=== PATIENT | female | born 1950 | race Two or more races ===

== ENCOUNTER 2018-04-14 16:40 | Inpatient (IN) | payer BC ==
--- OUTSIDE RECORDS SUMMARY | 2018-04-14 18:08 | XMS REPORT ---
:1950 External Reference #:[id number] Author Organization [employer] Address [address] [place] [address] [place] [address] Phone [phone] Care Team Providers Name Role Phone Alexandra Orozco MD Primary Care Physician Unavailable Payers Type Date Identification Numbers Payment Provider Subscriber Commercial Policy Number: [id number] [facility] Amber Perez Group Number: [id number] [address] PayID: [id number] [place] [address] Problems Date Description Provider Status Onset: 10/25/2014 Refractory migraine with aura Hailey Gallegos M.D. Active Onset: 04/25/2015 Carpal tunnel syndrome Hailey Gallegos M.D. Active Onset: 10/29/2015 Malignant tumor of ovary Hailey Gallegos M.D. Active Onset: 02/18/2016 Leukopenia Hailey Gallegos M.D. Active Social History Type Date Description Comments Occupation Retired Hand Dominance Right-handed ETOH Use Denies alcohol use Smoking Patient is a former smoker Recreational Drug Use Denies Drug Use Daily Caffeine Consumes on average 2 cups of regular coffee per day Exercise Type/Frequency Walks 3 times a week Allergies, Adverse Reactions, Alerts Date Description Reaction Status Severity Comments 11/25/2012 Keflex Rash active Medications Medication Date Status Form Strength Qnty SIG Indications Ordering Provider Sumatriptan 07/28 Active Tablets 100mg 12tab 1 tab by Arturo Overton s mouth at [place], onset of M.D. migraine. may repeat once in 2 hours. use no more than 2 tabs a day on no more than 2 days a week Nortriptyline HCL 07/28 Active Capsules 10mg 360ca Take 1 . ps Capsules El, By Mouth M.D. AT Bedtime as Directed Divalproex Sodium 03/24 Active Tablets ER 500mg 60tab take 2 Carley ER 24HR s tablets by Jason, aly at M.D. bedtime Sertraline HCL Active Tablets 100mg 1 tab po [place]-[facility] / daily Nohemi grey, [employer], RN Calcium Active Capsules 200-100-3 1 cap po Unknown 600/Magnesium /0000 3.3mg-mg- daily 300/Vitamin D Unit Cefaly Active once daily Unknown /0000 and as needed with headahces Prochlorperazine Active Tablets 10mg Take One Unknown Maleate Tablet By Mouth Every 6 Hours as Needed Chemo Therapy 10/28 Hx Hailey . El - M.D. 10/26 Phenergan 10/17 Hx Suppository 25mg 5unit 1 pr Q12h s prn nausea KEVYN Glez - 04/04 Fish Oil 10/19 Hx Capsules 1 cap po Hailey . daily El - M.D. 10/27 Zonisamide 04/06 Hx Capsules 50mg 90cap 2-3 caps Hailey s by mouth El, - every M.D. 10/05 night directed Amitriptyline HCL 07/28 Hx Tablets 10mg 90tab 1 -3 tabs Hailey . s as El, - directed M.D. 07/28 q Promethazine HCL 03/24 Hx Tablets 25mg 30tab 1 tab by Renee s mouth KEVYN Glez - every 8 10/27 hours needed Hydromorphone HCL 03/24 Hx Tablets 2mg 20tab 1 tab by Hailey Kristie s mouth El, - every 8 M.D. 10/27 hours needed [place] 07/13 Hx Tablets 5-325mg 40tab 1 po q4h s prn Blue gatica M.D. 07/28 Sumatriptan 00/ Hx Tablets 100mg 12tab 06/08 - 1 Hailey Claire Succinate /0000 s tab by Fransico Gallegos M.D. 07/28 Vital Signs Date Vital Result Comment 04/05/2018 Height 61 inches 5'1" Weight 116.00 lb Heart Rate 70 /min BP Systolic Sitting 106 mmHg BP Diastolic Sitting 60 mmHg Respiratory Rate 16 /min BMI (Body Mass Index) 21.9 kg/m2 10/30/2016 Height 61 inches 5'1" Weight 114.25 lb Heart Rate 60 /min BP Systolic Sitting 118 mmHg BP Diastolic Sitting 68 mmHg Respiratory Rate 12 /min BMI (Body Mass Index) 21.6 kg/m2 02/18/2016 Height 61 inches 5'1" Weight 110.00 lb Heart Rate 78 /min BP Systolic Sitting 104 mmHg BP Diastolic Sitting 62 mmHg Respiratory Rate 14 /min O2 % BldC Oximetry 95 % BMI (Body Mass Index) 20.8 kg/m2 10/29/2015 Height 61 inches 5'1" Weight 114.00 lb Heart Rate 72 /min BP Systolic Sitting 120 mmHg BP Diastolic Sitting 68 mmHg Respiratory Rate 14 /min BMI (Body Mass Index) 21.5 kg/m2 04/25/2015 Height 61 inches 5'1" Weight 125.00 lb Heart Rate 68 /min BP Systolic Sitting 124 mmHg BP Diastolic Sitting 70 mmHg Respiratory Rate 16 /min BMI (Body Mass Index) 23.6 kg/m2 10/25/2014 Height 61 inches 5'1" Heart Rate 60 /min BP Systolic Sitting 106 mmHg BP Diastolic Sitting 66 mmHg Respiratory Rate 16 /min 04/24/2014 Height 61 inches 5'1" Weight 125.00 lb Heart Rate 84 /min BP Systolic Sitting 120 mmHg BP Diastolic Sitting 72 mmHg Respiratory Rate 16 /min BMI (Body Mass Index) 23.6 kg/m2 10/19/2013 Height 61 inches 5'1" Weight 121.00 lb Heart Rate 76 /min BP Systolic Sitting 110 mmHg BP Diastolic Sitting 64 mmHg Respiratory Rate 16 /min BMI (Body Mass Index) 22.9 kg/m2 04/06/2013 Heart Rate 75 /min BP Systolic Sitting 108 mmHg BP Diastolic Sitting 66 mmHg Respiratory Rate 18 /min 11/25/2012 Height 61 inches 5'1" Weight 120.00 lb Heart Rate 88 /min BP Systolic 116 mmHg BP Diastolic 78 mmHg Respiratory Rate 12 /min BMI (Body Mass Index) 22.7 kg/m2 06/05/2011 Height 61 inches 5'1" Weight 113.00 lb Heart Rate 59 /min BP Systolic 89 mmHg BP Diastolic 52 mmHg BMI (Body Mass Index) 21.3 kg/m2 Results Test Date Test Result H/L Range Note Comp Metabolic Panel 01/27/2018 Sodium 136 mmol/L 135-145 Potassium 4.4 mmol/L 3.5-5.0 Chloride 102 mmol/L 101-111 Co2 Carbon Dioxide 29 mmol/L 22-32 Anion Gap 5 mmol/L 2-11 Glucose 86 mg/dL 70-100 Blood Urea Nitrogen 5 mg/dL Low 6-24 Creatinine 0.61 mg/dL 0.51-0.95 BUN/Creatinine Ratio 8.2 8-20 Calcium 8.7 mg/dL 8.6-10.3 Total Protein 5.8 g/dL Low 6.4-8.9 Albumin 3.5 g/dL 3.2-5.2 Globulin 2.3 g/dL 2-4 Albumin/Globulin Ratio 1.5 1-3 Total Bilirubin 0.20 mg/dL 0.2-1.0 Alkaline Phosphatase 64 U/L 34-104 Alt 9 U/L 7-52 Ast 15 U/L 13-39 Egfr Non- 98.1 >60 Egfr 118.7 >60 1 CBC Auto Diff 01/27/2018 White Blood Count 5.4 10^3/uL 3.5-10.8 Red Blood Count 3.72 10^6/uL Low 4.00-5.40 Hemoglobin 12.3 g/dL 12.0-16.0 Hematocrit 36 % 35-47 Mean Corpuscular Volume 98 fL High 80-97 Mean Corpuscular Hemoglobin 33 pg High 27-31 Mean Corpuscular HGB Conc 34 g/dL 31-36 Red Cell Distribution Width 13 % 10.5-15 Platelet Count 353 10^3/uL 150-450 Mean Platelet Volume 7.8 um3 7.4-10.4 Abs Neutrophils 3.4 10^3/uL 1.5-7.7 Abs Lymphocytes 1.4 10^3/uL 1.0-4.8 Abs Monocytes 0.5 10^3/uL 0-0.8 Abs Eosinophils 0.1 10^3/uL 0-0.6 Abs Basophils 0.1 10^3/uL 0-0.2 Abs Nucleated RBC 0 10^3/uL Granulocyte % 62.6 % 38-83 Lymphocyte % 25.4 % 25-47 Monocyte % 9.3 % High 0-7 Eosinophil % 1.7 % 0-6 Basophil % 1.0 % 0-2 Nucleated Red Blood Cells % 0.1 CBC Auto Diff 11/25/2017 White Blood Count 5.3 10^3/uL 3.5-10.8 Red Blood Count 4.09 10^6/uL 4.00-5.40 Hemoglobin 13.7 g/dL 12.0-16.0 Hematocrit 40 % 35-47 Mean Corpuscular Volume 97 fL 80-97 Mean Corpuscular Hemoglobin 34 pg High 27-31 Mean Corpuscular HGB Conc 35 g/dL 31-36 Red Cell Distribution Width 13 % 10.5-15 Platelet Count 202 10^3/uL 150-450 Mean Platelet Volume 8.5 um3 7.4-10.4 Abs Neutrophils 3.2 10^3/uL 1.5-7.7 Abs Lymphocytes 1.4 10^3/uL 1.0-4.8 Abs Monocytes 0.4 10^3/uL 0-0.8 Abs Eosinophils 0.2 10^3/uL 0-0.6 Abs Basophils 0.1 10^3/uL 0-0.2 Abs Nucleated RBC 0 10^3/uL Granulocyte % 60.4 % 38-83 Lymphocyte % 26.3 % 25-47 Monocyte % 8.4 % High 0-7 Eosinophil % 3.9 % 0-6 Basophil % 1.0 % 0-2 Nucleated Red Blood Cells % 0 Comp Metabolic Panel 11/25/2017 Sodium 134 mmol/L Low 135-145 Potassium 4.1 mmol/L 3.5-5.0 Chloride 99 mmol/L Low 101-111 Co2 Carbon Dioxide 28 mmol/L 22-32 Anion Gap 7 mmol/L 2-11 Glucose 97 mg/dL 70-100 Blood Urea Nitrogen 13 mg/dL 6-24 Creatinine 0.66 mg/dL 0.51-0.95 BUN/Creatinine Ratio 19.7 8-20 Calcium 9.4 mg/dL 8.6-10.3 Total Protein 6.6 g/dL 6.4-8.9 Albumin 3.8 g/dL 3.2-5.2 Globulin 2.8 g/dL 2-4 Albumin/Globulin Ratio 1.4 1-3 Total Bilirubin 0.30 mg/dL 0.2-1.0 Alkaline Phosphatase 68 U/L 34-104 Alt 11 U/L 7-52 Ast 22 U/L 13-39 Egfr Non- 89.6 >60 Egfr 108.4 >60 2 CBC Auto Diff 02/17/2016 White Blood Count 2.7 10^3/uL Low 3.5-10.8 3 Red Blood Count 2.93 10^6/uL Low 4.0-5.4 Hemoglobin 10.3 g/dL Low 12.0-16.0 Hematocrit 30 % Low 35-47 Mean Corpuscular Volume 103 fL High 80-97 Mean Corpuscular Hemoglobin 35 pg High 27-31 Mean Corpuscular HGB Conc 34 g/dL 31-36 Red Cell Distribution Width 21 % High 10.5-15 Platelet Count 169 10^3/uL 150-450 Mean Platelet Volume 8 um3 7.4-10.4 Abs Neutrophils 1.1 10^3/uL Low 1.5-7.7 Abs Lymphocytes 1.0 10^3/uL 1.0-4.8 Abs Monocytes 0.5 10^3/uL 0-0.8 Abs Eosinophils 0 10^3/uL 0-0.6 Abs Basophils 0 10^3/uL 0-0.2 Abs Nucleated RBC 0 10^3/uL Granulocyte % 42.4 % 38-83 Lymphocyte % 38.1 % 25-47 Monocyte % 17.9 % High 1-9 Eosinophil % 0.3 % 0-6 Basophil % 1.3 % 0-2 Nucleated Red Blood Cells % 0.1 Comp Metabolic Panel 02/17/2016 Sodium 134 mmol/L 133-145 Potassium 4.1 mmol/L 3.5-5.0 Chloride 101 mmol/L 101-111 Co2 Carbon Dioxide 27 mmol/L 22-32 Anion Gap 6 mmol/L 2-11 Glucose 82 mg/dL 70-100 Blood Urea Nitrogen 10 mg/dL 6-24 Creatinine 0.59 mg/dL 0.51-0.95 BUN/Creatinine Ratio 16.9 8-20 Calcium 8.7 mg/dL 8.6-10.3 Total Protein 6.0 g/dL Low 6.4-8.9 Albumin 3.7 g/dL 3.2-5.2 Globulin 2.3 g/dL 2-4 Albumin/Globulin Ratio 1.6 1-3 Total Bilirubin 0.20 mg/dL 0.2-1.0 Alkaline Phosphatase 48 U/L 34-104 Alt 11 U/L 7-52 Ast 20 U/L 13-39 Egfr Non- 102.6 >60 Egfr 132.0 >60 4 1 Because ethnic data is not always readily available, this report includes an eGFR for both -Americans and non- Americans. The National Kidney Disease Education Program (NKDEP) does not endorse the use of the MDRD equation for patients that are not between the ages of 18 and 70, are , have extremes of body size, muscle mass, or nutritional status, or are non- or non-. According to the National Kidney Foundation, irrespective of diagnosis, the stage of the disease is based on the level of kidney function: Stage Description GFR(mL/min/1.73 m(2)) 1 Kidney damage with normal or decreased GFR 90 2 Kidney damage with mild decrease in GFR 60-89 3 Moderate decrease in GFR 30-59 4 Severe decrease in GFR 15-29 5 Kidney failure <15 (or dialysis) 2 Because ethnic data is not always readily available, this report includes an eGFR for both -Americans and non- Americans. The National Kidney Disease Education Program (NKDEP) does not endorse the use of the MDRD equation for patients that are not between the ages of 18 and 70, are , have extremes of body size, muscle mass, or nutritional status, or are non- or non-. According to the National Kidney Foundation, irrespective of diagnosis, the stage of the disease is based on the level of kidney function: Stage Description GFR(mL/min/1.73 m(2)) 1 Kidney damage with normal or decreased GFR 90 2 Kidney damage with mild decrease in GFR 60-89 3 Moderate decrease in GFR 30-59 4 Severe decrease in GFR 15-29 5 Kidney failure <15 (or dialysis) 3 Consistent with previous results on 02/05/16. 4 Because ethnic data is not always readily available, this report includes an eGFR for both -Americans and non- Americans. The National Kidney Disease Education Program (NKDEP) does not endorse the use of the MDRD equation for patients that are not between the ages of 18 and 70, are , have extremes of body size, muscle mass, or nutritional status, or are non- or non-. According to the National Kidney Foundation, irrespective of diagnosis, the stage of the disease is based on the level of kidney function: Stage Description GFR(mL/min/1.73 m(2)) 1 Kidney damage with normal or decreased GFR 90 2 Kidney damage with mild decrease in GFR 60-89 3 Moderate decrease in GFR 30-59 4 Severe decrease in GFR 15-29 5 Kidney failure <15 (or dialysis) Procedures Date CPT Code Description Status 2011 49591 Carpal Tunnel Release Completed 2011 60205 Carpal Tunnel Release Completed Encounters Type Date Location Provider CPT E/M Dx Office Visit 01/12/2018 2:30p [facility] [place] [address] L82.1 D23.72 D23.71 Office Visit 10/30/2016 3:30p Rickey/Guero Gallegos, 66120 G43.019 [facility] M.D. Office Visit 02/18/2016 11:15a [facility] Hailey Gallegos 11625 G43.019 Services Of [facility] M.D. D72.819 Z79.899 Office Visit 10/29/2015 9:45a [facility] Hailey Gallegos 36594 G43.019 Services Of [place] Washer M.D. G44.41 Office Visit 04/25/2015 9:45a [facility] Hailey Gallegos 47293 G43.719 Services Of [place] Washer M.D. G56.01 R20.2 Office Visit 10/25/2014 9:45a [facility] Hailey Gallegos 43022 346.90 [facility] M.D. Office Visit 04/24/2014 9:15a [facility] Hailey Gallegos 84702 346.11 [facility] [place] M.D. Office Visit 10/19/2013 8:30a [facility] Hailey Gallegos 55173 346.11 [facility] [place] M.D. Office Visit 04/06/2013 8:30a [facility] Hailey Alethea Barbamelissa, 74473 346.90 [facility] M.D. Office Visit 11/25/2012 8:30a [facility]iley SharitaKristie Fredamelissa, 20863 346.90 [facility] M.D. Office Visit 07/28/2012 8:30a [facility] Hailey SharitaKristie Fredamelissa, 77405 346.90 [facility] [place] M.D. Office Visit 03/24/2012 2:15p [facility] Hailey SharitaKristie Fredamelissa, 75312 346.90 Services Of [place] Washer M.D. 781.0 Office Visit 06/05/2011 9:15a [facility] Cristal Cohen, 40994 354.0 Of Magdy Ness Plan of Care Future Appointment(s):06/15/2018 4:00 pm - Arturo Villa M.D. at [facility]04/05/2018 - Arturo Villa M.D.G43.019 Migraine w/ o aura, intractable, without status migrainosusReferral:Susana Castillo MD, Pain Management-anesthesiFollow up:get last blood tests from Dr. Sanford 1-2 months after VmmxgF41.39 Carcinoma in situ of other female genital organsNew Xrays:MRI Brain W/O
[2018-04-14] MEDS: NS 0.9% 1000 ML* 1,000 ML IV SCH (18:41)
[2018-04-14] MEDS: Morphine VIAL* 4 MG/ML VIAL (1 ml vial) IV PRN (21:15)
[2018-04-14] MEDS: Divalproex ER TAB(*) 500 MG PO SCH (21:19)
[2018-04-14] MEDS: PROCHLORPERAZINE INJ 5 MG/ML 2 ML VIAL IV PRN (21:49)
[2018-04-15 00:58] LABS: Mean Platelet Volume 7.2 fL (7.4-10.4); Platelet Count 50 10^3/ul (150-450)
[2018-04-15] MEDS: Levothyroxine TAB* 50 MCG TAB PO SCH (05:11)
[2018-04-15] MEDS: NS 0.9% 1000 ML* 1,000 ML IV SCH ×2 (05:11→14:22)
[2018-04-15 05:38] LABS: Hematocrit 28 % (35-47); Hemoglobin 9.6 g/dl (12.0-16.0); Mean Corpuscular HGB Conc 34 g/dl (31-36); Mean Corpuscular Hemoglobin 33 pg (27-31); Mean Corpuscular Volume 96 fL (80-97); Mean Platelet Volume 7.7 fL (7.4-10.4); Platelet Count 48 10^3/ul (150-450); Red Blood Count 2.91 10^6/ul (4.00-5.40); Red Cell Distribution Width 13 % (10.5-15); White Blood Count 1.2 10^3/ul (3.5-10.8)
[2018-04-15 05:52] LABS: EGFR Non-African American 129.4 (>60)
[2018-04-15 06:04] LABS: ABS Basophils 0 10^3/ul (0-0.2); ABS Eosinophils 0 10^3/ul (0-0.6); ABS Lymphocytes 0.8 10^3/ul (1.0-4.8); ABS Monocytes 0.1 10^3/ul (0-0.8); ABS Neutrophils 0.3 10^3/ul (1.5-7.7); ABS Nucleated RBC 0 10^3/ul; Eosinophil % 0.2 % (0-6); Lymphocyte % 71.2 % (25-47); Nucleated Red Blood Cells % 0
[2018-04-15] MEDS: Nortriptyline CAP* 10 MG PO SCH ×2 (08:44→10:51)
[2018-04-15] MEDS ORDERED: SUMAtriptan TAB* 50 MG PO ONE (10:18)
[2018-04-15] MEDS: Divalproex ER TAB(*) 500 MG PO SCH ×2 (17:23→20:17)
[2018-04-15] MEDS: PROCHLORPERAZINE INJ 5 MG/ML 2 ML VIAL IV PRN (17:29)
[2018-04-15] MEDS ORDERED: SUMAtriptan TAB* 100 MG PO PRN (18:00)
[2018-04-15] MEDS: Morphine VIAL* 4 MG/ML VIAL (1 ml vial) IV PRN (20:21)
[2018-04-16] MEDS: NS 0.9% 1000 ML* 1,000 ML IV SCH ×2 (00:18→17:18)
[2018-04-16] MEDS: Levothyroxine TAB* 50 MCG TAB PO SCH (06:02)
[2018-04-16 06:22] LABS: ABS Basophils 0 10^3/ul (0-0.2); ABS Eosinophils 0 10^3/ul (0-0.6); ABS Lymphocytes 0.9 10^3/ul (1.0-4.8); ABS Monocytes 0.1 10^3/ul (0-0.8); ABS Neutrophils 0.9 10^3/ul (1.5-7.7); ABS Nucleated RBC 0 10^3/ul; Eosinophil % 0.5 % (0-6); Hematocrit 27 % (35-47); Hemoglobin 9.3 g/dl (12.0-16.0); Lymphocyte % 45.9 % (25-47); Mean Corpuscular HGB Conc 34 g/dl (31-36); Mean Corpuscular Hemoglobin 33 pg (27-31); Mean Corpuscular Volume 96 fL (80-97); Mean Platelet Volume 7.7 fL (7.4-10.4); Nucleated Red Blood Cells % 0.1; Platelet Count 35 10^3/ul (150-450); Red Blood Count 2.83 10^6/ul (4.00-5.40); Red Cell Distribution Width 12 % (10.5-15); White Blood Count 1.9 10^3/ul (3.5-10.8)
[2018-04-16] MEDS: Nortriptyline CAP* 10 MG PO SCH (08:17)
[2018-04-16] MEDS ORDERED: Saline NASAL SPRAY 0.65%* BTL BOTH NARES PRN (09:34)
[2018-04-16] MEDS: Morphine VIAL* 4 MG/ML VIAL (1 ml vial) IV PRN (10:33)
[2018-04-16] MEDS: Acetaminophen TAB* 325 MG PO PRN ×2 (16:20→20:25)
[2018-04-16] MEDS: Divalproex ER TAB(*) 500 MG PO SCH (20:10)
[2018-04-17] MEDS: Levothyroxine TAB* 50 MCG TAB PO SCH (05:23)
[2018-04-17 06:05] LABS: EGFR Non-African American 139.4 (>60)
[2018-04-17] MEDS: Nortriptyline CAP* 10 MG PO SCH (08:53)
[2018-04-17] MEDS: NS 0.9% 1000 ML* 1,000 ML IV SCH (10:35)
[2018-04-17 11:14] LABS: ABS Basophils 0 10^3/ul (0-0.2); ABS Eosinophils 0 10^3/ul (0-0.6); ABS Lymphocytes 0.7 10^3/ul (1.0-4.8); ABS Monocytes 0.2 10^3/ul (0-0.8); ABS Neutrophils 0.8 10^3/ul (1.5-7.7); ABS Nucleated RBC 0 10^3/ul; Hematocrit 30 % (35-47); Hemoglobin 10.3 g/dl (12.0-16.0); Lymphocyte % 40.9 % (25-47); Mean Corpuscular HGB Conc 34 g/dl (31-36); Mean Corpuscular Hemoglobin 33 pg (27-31); Mean Corpuscular Volume 96 fL (80-97); Mean Platelet Volume 8.3 fL (7.4-10.4); Nucleated Red Blood Cells % 0.3; Platelet Count 35 10^3/ul (150-450); Red Blood Count 3.14 10^6/ul (4.00-5.40); Red Cell Distribution Width 12 % (10.5-15); White Blood Count 1.7 10^3/ul (3.5-10.8)
[2018-04-17] MEDS: Acetaminophen TAB* 325 MG PO PRN ×2 (14:54→21:11)
[2018-04-17] MEDS: Divalproex ER TAB(*) 500 MG PO SCH (21:13)
[2018-04-18] MEDS: ALPRAZolam TAB* 0.25 MG PO PRN ×2 (02:27→11:49)
[2018-04-18] MEDS: Levothyroxine TAB* 50 MCG TAB PO SCH (06:24)
[2018-04-18 07:40] LABS: ABS Basophils 0 10^3/ul (0-0.2); ABS Eosinophils 0 10^3/ul (0-0.6); ABS Lymphocytes 0.7 10^3/ul (1.0-4.8); ABS Monocytes 0.2 10^3/ul (0-0.8); ABS Neutrophils 0.9 10^3/ul (1.5-7.7); ABS Nucleated RBC 0 10^3/ul; Hematocrit 28 % (35-47); Hemoglobin 9.5 g/dl (12.0-16.0); Lymphocyte % 37.1 % (25-47); Mean Corpuscular HGB Conc 34 g/dl (31-36); Mean Corpuscular Hemoglobin 33 pg (27-31); Mean Corpuscular Volume 95 fL (80-97); Mean Platelet Volume 8.5 fL (7.4-10.4); Nucleated Red Blood Cells % 0.9; Platelet Count 44 10^3/ul (150-450); Red Blood Count 2.93 10^6/ul (4.00-5.40); Red Cell Distribution Width 12 % (10.5-15); White Blood Count 1.8 10^3/ul (3.5-10.8)
[2018-04-18 07:48] LABS: EGFR Non-African American 164.4 (>60)
[2018-04-18] MEDS: Nortriptyline CAP* 10 MG PO SCH (08:51)
[2018-04-18] MEDS ORDERED: Magnesium Sulfate 2 GM IV* 2 GM/50 ML BAG IVPB ONE (10:23)
--- NOTE | 2018-04-18 10:23 | PN ---
Progress Note - Progress Note Date of Service: 04/18/18 SOAP: Subjective: [Feels poorly. Small BM yesterday am, none since, but still passing gas. No nausea. Tolerating clear liquids, but no real appetite. She is very uncomfortable, feels bloated and can't find a comfortable position.] Objective: [ Laboratory Results - last 24 hr 04/17/18 04/18/18 04/18/18 10:41 06:37 06:37 WBC 1.7 L 1.8 L RBC 3.14 L 2.93 L Hgb 10.3 L 9.5 L Hct 30 L 28 L MCV 96 95 MCH 33 H 33 H MCHC 34 34 RDW 12 12 Plt Count 35 L 44 L MPV 8.3 8.5 Neut % (Auto) 47.5 48.5 Lymph % (Auto) 40.9 37.1 [place] % (Auto) 9.2 H 12.2 H Eos % (Auto) 2.0 2.0 Baso % (Auto) 0.4 0.2 Absolute Neuts (auto) 0.8 L 0.9 L Absolute Lymphs (auto) 0.7 L 0.7 L Absolute Monos (auto) 0.2 0.2 Absolute Eos (auto) 0 0 Absolute Basos (auto) 0 0 Absolute Nucleated RBC 0 0 Nucleated RBC % 0.3 0.9 Sodium 136 Potassium 3.3 L Chloride 104 Carbon Dioxide 26 Anion Gap 6 BUN 3 L Creatinine 0.39 L Est GFR ( Amer) 199.0 Est GFR (Non-Af Amer) 164.4 BUN/Creatinine Ratio 7.7 L Glucose 90 Calcium 7.9 L Total Bilirubin 0.20 AST 47 H ALT 65 H Alkaline Phosphatase 76 Total Protein 4.9 L Albumin 2.8 L Globulin 2.1 Albumin/Globulin Ratio 1.3 Acetaminophen (Tylenol Tab*) 650 mg PO Q4H PRN PRN Reason: PAIN Last Admin: 04/17/18 21:11 Dose: 650 mg Alprazolam (Xanax Tab*) 0.25 mg PO TID PRN PRN Reason: ANXIETY Last Admin: 04/18/18 02:27 Dose: 0.25 mg Divalproex Sodium (Depakote Er Tab(*)) 1,500 mg PO BEDTIME WILFRIDO Last Admin: 04/17/18 21:13 Dose: 1,500 mg Heparin Sodium (Porcine) (Heparin Flush Port (Ivad)) 5 ml FLUSH DAILY [facility]; Protocol Last Admin: 04/18/18 08:16 Dose: Not Given Sodium Chloride (Ns 0.9% 1000 Ml*) 1,000 mls @ 60 mls/hr IV PER RATE [facility] Last Admin: 04/17/18 10:35 Dose: 60 mls/hr Levothyroxine Sodium (Synthroid Tab*) 50 mcg PO DAILY@0600 [facility] Last Admin: 04/18/18 06:24 Dose: 50 mcg Morphine Sulfate (Morphine Vial*) 2 mg IV Q2H PRN PRN Reason: PAIN Last Admin: 04/16/18 10:33 Dose: 2 mg Nortriptyline HCl (Pamelor Cap*) 10 mg PO DAILY [facility] Last Admin: 04/18/18 08:51 Dose: 10 mg Prochlorperazine Edisylate (Compazine Inj*) 10 mg IV Q6H PRN PRN Reason: NAUSEA/VOMITING Last Admin: 04/15/18 17:29 Dose: 10 mg Sertraline HCl (Zoloft*) 150 mg PO DAILY [facility] Sodium Chloride (Sodium Chloride 0.65% Nasal [place]*) 1 spray BOTH NARES Q4H PRN PRN Reason: dryness Vital Signs: Temp Pulse Resp BP Pulse Ox 96.7 F 68 16 127/65 97 04/17/18 22:37 04/17/18 22:37 04/18/18 04:30 04/17/18 22:37 04/17/18 22:37 Exam: Gen: Ill appearing 67 yo female in NAD but looks uncomfortable HEENT: MMM, no thrush CV: RRR, no m/r/g Resp: CTA, no w/c/r Abd: distended, firm, mild TTP, BS active in all quadrants Ext: no edema] Assessment: [67 yo female with recurrent ovarian CA admitted with a SBO and pancytopenia following her first cycle of chemotherapy.] Plan: [1. SBO - no change on KUB but symptomatically improved - paracentesis today under US guidance - would like US guidance due to dilated loops of bowel - cont clear liquids as tolerated - repeat KUB tomorrow 2. Pancytopenia - secondary to chemotherapy - slowly improving 3. Recurrent ovarian CA with ascites - cycle 1 carbo/gem/avastin 03/31/18 - therapeutic paracentesis today 4. DVT prophylaxis - no chemical prophylaxis as platelets still <50k ]
[2018-04-18] MEDS: Sertraline* 100 MG TAB PO SCH (11:37)
[2018-04-18] MEDS: PROCHLORPERAZINE INJ 5 MG/ML 2 ML VIAL IV PRN ×2 (12:01→19:36)
[2018-04-18] MEDS: KCL 10 MEQ/50 ML IVPREMIX* 10 MEQ/50 ML BAG IV SCH ×3 (13:09→17:53)
[2018-04-18] MEDS ORDERED: KCL 10 MEQ/50 ML IVPREMIX* 10 MEQ/50 ML BAG ONE (17:49)
[2018-04-18] MEDS: Acetaminophen TAB* 325 MG PO PRN (17:56)
[2018-04-18] MEDS: Morphine VIAL* 4 MG/ML VIAL (1 ml vial) IV PRN (19:35)
[2018-04-18] MEDS: Divalproex ER TAB(*) 500 MG PO SCH (19:35)
[2018-04-19] MEDS: NS 0.9% 1000 ML* 1,000 ML IV SCH (02:45)
[2018-04-19] MEDS: Levothyroxine TAB* 50 MCG TAB PO SCH (05:14)
[2018-04-19] MEDS: Acetaminophen TAB* 325 MG PO PRN ×2 (05:26→14:53)
[2018-04-19 05:53] LABS: ABS Basophils 0 10^3/ul (0-0.2); ABS Eosinophils 0 10^3/ul (0-0.6); ABS Lymphocytes 0.6 10^3/ul (1.0-4.8); ABS Monocytes 0.3 10^3/ul (0-0.8); ABS Neutrophils 0.9 10^3/ul (1.5-7.7); ABS Nucleated RBC 0 10^3/ul; Eosinophil % 1.3 % (0-6); Hematocrit 28 % (35-47); Hemoglobin 9.6 g/dl (12.0-16.0); Lymphocyte % 33.7 % (25-47); Mean Corpuscular HGB Conc 35 g/dl (31-36); Mean Corpuscular Hemoglobin 33 pg (27-31); Mean Corpuscular Volume 96 fL (80-97); Mean Platelet Volume 8.3 fL (7.4-10.4); Nucleated Red Blood Cells % 0.7; Platelet Count 93 10^3/ul (150-450); Red Cell Distribution Width 12 % (10.5-15); White Blood Count 1.9 10^3/ul (3.5-10.8)
[2018-04-19 06:02] LABS: EGFR Non-African American 155.2 (>60)
[2018-04-19] MEDS: Sertraline* 100 MG TAB PO SCH (09:08)
[2018-04-19] MEDS: Nortriptyline CAP* 10 MG PO SCH (09:08)
--- NOTE | 2018-04-19 11:45 | PN ---
Progress Note - Progress Note Date of Service: 04/19/18 SOAP: Subjective: []Feels a lot better following paracentesis yesterday, though still full. Passing gas and last BM 04/17. Nausea last night following taking a handful of pills. No emesis. Stomach hurts to left aspect machelle. when she moves, such as rolling over in bed. Tolerating clears and hopeful to go home. Medications: Acetaminophen (Tylenol Tab*) 650 mg PO Q4H PRN PRN Reason: PAIN Last Admin: 04/19/18 05:26 Dose: 650 mg Alprazolam (Xanax Tab*) 0.25 mg PO TID PRN PRN Reason: ANXIETY Last Admin: 04/18/18 11:49 Dose: 0.25 mg Divalproex Sodium (Depakote Er Tab(*)) 1,500 mg PO BEDTIME [facility] Last Admin: 04/18/18 19:35 Dose: 1,500 mg Heparin Sodium (Porcine) (Heparin Flush Port (Ivad)) 5 ml FLUSH DAILY [facility]; Protocol Last Admin: 04/19/18 09:07 Dose: Not Given Levothyroxine Sodium (Synthroid Tab*) 50 mcg PO DAILY@0600 [facility] Last Admin: 04/19/18 05:14 Dose: 50 mcg Morphine Sulfate (Morphine Vial*) 2 mg IV Q2H PRN PRN Reason: PAIN Last Admin: 04/18/18 19:35 Dose: 2 mg Nortriptyline HCl (Pamelor Cap*) 10 mg PO DAILY [facility] Last Admin: 04/19/18 09:08 Dose: 10 mg Prochlorperazine Edisylate (Compazine Inj*) 10 mg IV Q6H PRN PRN Reason: NAUSEA/VOMITING Last Admin: 04/18/18 19:36 Dose: 10 mg Sertraline HCl (Zoloft*) 150 mg PO DAILY [facility] Last Admin: 04/19/18 09:08 Dose: 150 mg Sodium Chloride (Sodium Chloride 0.65% Nasal [place]*) 1 spray BOTH NARES Q4H PRN PRN Reason: dryness Objective: [] Vital Signs Temp Pulse Resp BP Pulse Ox 97.4 F 71 16 120/48 96 04/19/18 11:23 04/19/18 11:23 04/19/18 11:23 04/19/18 11:23 04/19/18 11:23 A&Ox3, EOMI, neuro grossly non-focal HRR, S1S2 LS clear bilat. with even and non-labored resp. +BS, hypoactive, with round soft abd. slightly distended, tender to Left quads No edema noted Laboratory Results - last 24 hr 04/19/18 04/19/18 05:22 05:22 WBC 1.9 L RBC 2.90 L Hgb 9.6 L Hct 28 L MCV 96 MCH 33 H MCHC 35 RDW 12 Plt Count 93 L D MPV 8.3 Neut % (Auto) 47.2 Lymph % (Auto) 33.7 [place] % (Auto) 17.6 H Eos % (Auto) 1.3 Baso % (Auto) 0.2 Absolute Neuts (auto) 0.9 L Absolute Lymphs (auto) 0.6 L Absolute Monos (auto) 0.3 Absolute Eos (auto) 0 Absolute Basos (auto) 0 Absolute Nucleated RBC 0 Nucleated RBC % 0.7 Sodium 135 Potassium 3.5 Chloride 105 Carbon Dioxide 25 Anion Gap 5 BUN 3 L Creatinine 0.41 L Est GFR ( Amer) 187.8 Est GFR (Non-Af Amer) 155.2 BUN/Creatinine Ratio 7.3 L Glucose 94 Calcium 7.6 L Magnesium 2.1 Total Bilirubin 0.20 AST 32 ALT 49 Alkaline Phosphatase 73 Total Protein 4.7 L Albumin 2.6 L Globulin 2.1 Albumin/Globulin Ratio 1.2 Assessment: []67 yo female with recurrent ovarian CA admitted with SBO and pancytopenia following her first cycle of chemotherapy. While her counts are slowly recovering her SBO has been persistent. Plan: []1. SBO: persistent on x-ray with cont.'d abd. pain though mild improvement since admission - start TPN standard base A, check daily labs - OK to cont. PO clears as long as not throwing up - enc.'d ambulation 2. Ovarian Cancer: s/p C1 Carbo/[place]/Avastin (day 1 03/31, day 8 04/07) - day 20, plan delay of C2 x1 week and will plan 20% dose reduction - will likely hold Avastin d/t recurrent obstructions 3. Pancytopenia: chemotherapy induced, recovering - cont. daily labs
[2018-04-19 15:11] LABS: Hematocrit 28 % (35-47); Hemoglobin 9.6 g/dl (12.0-16.0); Mean Corpuscular HGB Conc 34 g/dl (31-36); Mean Corpuscular Hemoglobin 33 pg (27-31); Mean Corpuscular Volume 95 fL (80-97); Mean Platelet Volume 8.2 fL (7.4-10.4); Platelet Count 139 10^3/ul (150-450); Red Blood Count 2.92 10^6/ul (4.00-5.40); Red Cell Distribution Width 13 % (10.5-15)
[2018-04-19 15:49] LABS: EGFR Non-African American 155.2 (>60)
[2018-04-19 16:08] LABS: ABS Basophils 0 10^3/ul (0-0.2); ABS Eosinophils 0 10^3/ul (0-0.6); ABS Lymphocytes 0.8 10^3/ul (1.0-4.8); ABS Monocytes 0.3 10^3/ul (0-0.8); ABS Neutrophils 0.9 10^3/ul (1.5-7.7); ABS Nucleated RBC 0 10^3/ul; Eosinophil % 1.4 % (0-6); Lymphocyte % 39.2 % (25-47)
[2018-04-19] MEDS ORDERED: TPN* 24 HR with Dextrose 50% Water* 500 ML, Amino Acid Infusion 10%* 850 ML, Sterile Wa... CENTR SCH ×12 (17:00)
[2018-04-19] MEDS: Divalproex ER TAB(*) 500 MG PO SCH (20:19)
[2018-04-19] MEDS: Morphine VIAL* 4 MG/ML VIAL (1 ml vial) IV PRN (20:27)
[2018-04-20] MEDS: Morphine VIAL* 4 MG/ML VIAL (1 ml vial) IV PRN ×3 (03:25→21:54)
[2018-04-20] MEDS: Levothyroxine TAB* 50 MCG TAB PO SCH (06:14)
[2018-04-20 06:44] LABS: Hematocrit 29 % (35-47); Hemoglobin 9.9 g/dl (12.0-16.0); Mean Corpuscular HGB Conc 35 g/dl (31-36); Mean Corpuscular Hemoglobin 33 pg (27-31); Mean Corpuscular Volume 96 fL (80-97); Mean Platelet Volume 8.1 fL (7.4-10.4); Platelet Count 216 10^3/ul (150-450); Red Blood Count 2.98 10^6/ul (4.00-5.40); Red Cell Distribution Width 13 % (10.5-15); White Blood Count 2.3 10^3/ul (3.5-10.8)
[2018-04-20 07:11] LABS: EGFR Non-African American 146.9 (>60)
[2018-04-20 07:47] LABS: ABS Basophils 0 10^3/ul (0-0.2); ABS Eosinophils 0 10^3/ul (0-0.6); ABS Lymphocytes 0.8 10^3/ul (1.0-4.8); ABS Monocytes 0.4 10^3/ul (0-0.8); ABS Neutrophils 1.2 10^3/ul (1.5-7.7); ABS Nucleated RBC 0.1 10^3/ul; Eosinophil % 1.8 % (0-6); Lymphocyte % 32.6 % (25-47); Nucleated Red Blood Cells % 4.2
[2018-04-20] MEDS: Sertraline* 100 MG TAB PO SCH (09:15)
[2018-04-20] MEDS: Nortriptyline CAP* 10 MG PO SCH (09:16)
[2018-04-20] MEDS: Acetaminophen TAB* 325 MG PO PRN (14:46)
[2018-04-20] MEDS: TPN* 24 HR with Dextrose 50% Water* 500 ML, Amino Acid Infusion 10%* 850 ML, Sterile Wa... CENTR SCH ×12 (17:27)
[2018-04-20] MEDS: Divalproex ER TAB(*) 500 MG PO SCH (20:59)
[2018-04-20] MEDS: Acetaminophen ADULT LIQ* 650 MG/20.3 ML UDC PO PRN (23:22)
[2018-04-21] MEDS: Levothyroxine TAB* 50 MCG TAB PO SCH (05:50)
[2018-04-21] MEDS: Morphine VIAL* 4 MG/ML VIAL (1 ml vial) IV PRN ×3 (05:57→23:29)
[2018-04-21] MEDS: Nortriptyline CAP* 10 MG PO SCH (09:14)
[2018-04-21] MEDS: Sertraline* 100 MG TAB PO SCH (09:14)
[2018-04-21] MEDS ORDERED: LORazepam INJ* 2 MG/ML 1 ML VIAL IV PUSH PRN (11:08)
--- NOTE | 2018-04-21 12:07 | PN ---
Progress Note - Progress Note Date of Service: 04/21/18 SOAP: Subjective: []Lots of abd. pain overnight. Pain meds help some but feels very frustrated. Majority of pain is LUQ. Cont.'s to pass gas. Last BM 04/17/18 No nausea or vomiting, has been tolerating clears. Questions why she isn't getting laxatives or other interventions. Legs are puffy. ROS otherwise normal Medications: Acetaminophen (Tylenol Adult Liq*) 650 mg PO Q4H PRN PRN Reason: PAIN Last Admin: 04/20/18 23:22 Dose: 650 mg Alprazolam (Xanax Tab*) 0.25 mg PO TID PRN PRN Reason: ANXIETY Last Admin: 04/18/18 11:49 Dose: 0.25 mg Divalproex Sodium (Depakote Er Tab(*)) 1,500 mg PO BEDTIME [facility] Last Admin: 04/20/18 20:59 Dose: 1,500 mg Heparin Sodium (Porcine) (Heparin Flush Port (Ivad)) 5 ml FLUSH DAILY [facility]; Protocol Last Admin: 04/21/18 09:21 Dose: Not Given Dextrose 500 ml/ Amino Acids 850 ml/ Sterile Water 150 ml/Fat Emulsion Intravenous 250 ml/ Sodium Chloride 100 meq/Potassium Chloride 50 meq/Potassium Phosphate 20 mmole/Calcium Gluconate 10 meq/Magnesium Sulfate 10 meq/ Multivitamins 10 ml/ Trace Metals 1 ml/ Nutrition ( Parenteral) 1,841.6347 mls @ 76.735 mls/hr CENTR 1700 [facility] Last Admin: 04/20/18 17:27 Dose: 76.735 mls/hr Levothyroxine Sodium (Synthroid Tab*) 50 mcg PO DAILY@0600 [facility] Last Admin: 04/21/18 05:50 Dose: 50 mcg Lorazepam (Ativan Inj*) 0.5 mg IV PUSH Q6H PRN PRN Reason: anxiety/sleep Morphine Sulfate (Morphine Vial*) 2 mg IV Q2H PRN PRN Reason: PAIN Last Admin: 04/21/18 05:57 Dose: 2 mg Nortriptyline HCl (Pamelor Cap*) 10 mg PO DAILY [facility] Last Admin: 04/21/18 09:14 Dose: 10 mg Prochlorperazine Edisylate (Compazine Inj*) 10 mg IV Q6H PRN PRN Reason: NAUSEA/VOMITING Last Admin: 04/18/18 19:36 Dose: 10 mg Sertraline HCl (Zoloft*) 150 mg PO DAILY [facility] Last Admin: 04/21/18 09:14 Dose: 150 mg Sodium Chloride (Sodium Chloride 0.65% Nasal [place]*) 1 spray BOTH NARES Q4H PRN PRN Reason: dryness Objective: [] Vital Signs Temp Pulse Resp BP Pulse Ox 98.0 F 84 18 129/49 96 04/21/18 08:02 04/21/18 08:02 04/21/18 09:21 04/21/18 08:02 04/21/18 08:02 A&Ox3, EOMI, neuro grossly non-focal HRR, S1S2, no murmur noted LS clear bilat. throughout +BS, abd. round and softly distended with tymphany throughout, tender to palpation greatest at LUQ +PP=bilat. with trace edema, non-pitting Laboratory Results - last 24 hr 04/20/18 04/20/18 04/21/18 19:24 23:15 05:50 POC Glucose (mg/dL) 155 H 144 H 137 H Assessment: []67 yo female with recurrent ovarian cancer presenting with pancytopenia following C1 Carbo/[place]/Avastin (day 1 03/31/18) and recurrent SBO. Unfortunately she has not improved with medical management and is very frustrated with her current situation. I discussed the concern for underlying cancer being driving cause (question of adhesions) d/t lack of improvement and unfortunate situation of recent VEGF inh. treatment (Avastin given 03/31) limiting our ability to surgically intervene. In terms of surgery she is likely a risky candidate as well d/t prior surgery and potential that there would be too much disease to resect and reverse the obstruction, however she remains open to all options at this time. Discussed that stopping all treatment can be an option at which point we would recommend home with hospice and stopping TPN, however she wants to remain aggressive at this time (which is completely appropriate). Reviewed that since admission she has been tolerating clears, however we could consider a trial of NPO with NG tube (though I am not sure how much decompression this will provide as she tolerates clears) and if no improvement then obtain surgical consultation (though again she is not a good candidate). Plan: []1. SBO: NPO except sips of fluids, place NG tube - reassess abd. x-ray in AM, if no improvement consult surgery 60 min spent face to face with pt., >50% face to face counseling
[2018-04-21] MEDS: TPN* 24 HR with Dextrose 50% Water* 500 ML, Amino Acid Infusion 10%* 850 ML, Sterile Wa... CENTR SCH ×12 (17:51)
[2018-04-21 19:11] LABS: ABS Basophils 0 10^3/ul (0-0.2); ABS Eosinophils 0.1 10^3/ul (0-0.6); ABS Lymphocytes 0.9 10^3/ul (1.0-4.8); ABS Monocytes 0.7 10^3/ul (0-0.8); ABS Neutrophils 1.4 10^3/ul (1.5-7.7); ABS Nucleated RBC 0.1 10^3/ul; Hematocrit 29 % (35-47); Hemoglobin 9.9 g/dl (12.0-16.0); Lymphocyte % 29.9 % (25-47); Mean Corpuscular HGB Conc 34 g/dl (31-36); Mean Corpuscular Hemoglobin 33 pg (27-31); Mean Corpuscular Volume 97 fL (80-97); Mean Platelet Volume 7.8 fL (7.4-10.4); Nucleated Red Blood Cells % 2.9; Platelet Count 430 10^3/ul (150-450); Red Blood Count 3.01 10^6/ul (4.00-5.40); Red Cell Distribution Width 13 % (10.5-15); White Blood Count 3.1 10^3/ul (3.5-10.8)
[2018-04-21 20:01] LABS: EGFR Non-African American 159.7 (>60)
[2018-04-21] MEDS: Divalproex ER TAB(*) 500 MG PO SCH (21:49)
[2018-04-22] MEDS: Levothyroxine TAB* 50 MCG TAB PO SCH (05:30)
[2018-04-22] MEDS: Sertraline* 100 MG TAB PO SCH (09:08)
[2018-04-22] MEDS: Nortriptyline CAP* 10 MG PO SCH (09:08)
--- NOTE | 2018-04-22 10:35 | PN ---
Progress Note - Progress Note Date of Service: 04/22/18 SOAP: Subjective: []Feels poorly with NTG. Pain in nose and pulling. Abdominal pain is a little better. No vomiting and has some nausea. Otherwise fine. No fevers. She continues go feel frustrated. Passing gas but no BM Acetaminophen (Tylenol Adult Liq*) 650 mg PO Q4H PRN PRN Reason: PAIN Last Admin: 04/20/18 23:22 Dose: 650 mg Alprazolam (Xanax Tab*) 0.25 mg PO TID PRN PRN Reason: ANXIETY Last Admin: 04/18/18 11:49 Dose: 0.25 mg Divalproex Sodium (Depakote Er Tab(*)) 1,500 mg PO BEDTIME [facility] Last Admin: 04/21/18 21:49 Dose: Not Given Heparin Sodium (Porcine) (Heparin Flush Port (Ivad)) 5 ml FLUSH DAILY [facility]; Protocol Last Admin: 04/22/18 09:08 Dose: Not Given Dextrose 500 ml/ Amino Acids 850 ml/ Sterile Water 150 ml/Fat Emulsion Intravenous 250 ml/ Sodium Chloride 100 meq/Potassium Chloride 50 meq/Potassium Phosphate 20 mmole/Calcium Gluconate 10 meq/Magnesium Sulfate 10 meq/ Multivitamins 10 ml/ Trace Metals 1 ml/ Nutrition ( Parenteral) 1,841.6347 mls @ 76.735 mls/hr [facility]ENTR 1700 [facility] Last Admin: 04/21/18 17:51 Dose: 76.735 mls/hr Levothyroxine Sodium (Synthroid Tab*) 50 mcg PO DAILY@0600 [facility] Last Admin: 04/22/18 05:30 Dose: Not Given Lorazepam (Ativan Inj*) 0.5 mg IV PUSH Q6H PRN PRN Reason: anxiety/sleep Last Admin: 04/21/18 14:06 Dose: 0.5 mg Morphine Sulfate (Morphine Vial*) 2 mg IV Q2H PRN PRN Reason: PAIN Last Admin: 04/21/18 23:29 Dose: 2 mg Nortriptyline HCl (Pamelor Cap*) 10 mg PO DAILY [facility] Last Admin: 04/22/18 09:08 Dose: Not Given Prochlorperazine Edisylate (Compazine Inj*) 10 mg IV Q6H PRN PRN Reason: NAUSEA/VOMITING Last Admin: 04/18/18 19:36 Dose: 10 mg Sertraline HCl (Zoloft*) 150 mg PO DAILY [facility] Last Admin: 04/22/18 09:08 Dose: Not Given Sodium Chloride (Sodium Chloride 0.65% Nasal [place]*) 1 spray BOTH NARES Q4H PRN PRN Reason: dryness Objective: [] Vital Signs Temp Pulse Resp BP Pulse Ox 97.7 F 90 18 117/51 95 04/22/18 06:07 04/22/18 06:07 04/22/18 08:00 04/22/18 06:07 04/22/18 06:07 HEENT: NGT in place CTA RRR s1S2 Distended and non tender abd, hyper tympanic but with + BS. Ext tr edea Neuro AAOx3 XR abd: slight improvement Assessment: []67 year old with ovarian cancer one week after cycle 1 of Carbo/[place]/Avastin. DDx: adhesion or progressive disease. Surgery high risk at this time but will be only options of obstruction is from progressive cancer. Plan: []1. She is uncomfortable with NGT and will remove. 2. Ice chips and tea. 3. Minimize oral medications - Hold Zoloft, Levothyroxine to IV - Will continue Depakote 4. Check Ab XR tomorrow. 5. Check labs today and adjust TPN as needed.
[2018-04-22 12:05] LABS: Hematocrit 28 % (35-47); Hemoglobin 9.8 g/dl (12.0-16.0); Mean Corpuscular HGB Conc 35 g/dl (31-36); Mean Corpuscular Hemoglobin 34 pg (27-31); Mean Corpuscular Volume 98 fL (80-97); Mean Platelet Volume 7.7 fL (7.4-10.4); Platelet Count 498 10^3/ul (150-450); Red Blood Count 2.87 10^6/ul (4.00-5.40); Red Cell Distribution Width 13 % (10.5-15); White Blood Count 2.9 10^3/ul (3.5-10.8)
[2018-04-22 12:22] LABS: EGFR Non-African American 169.4 (>60)
[2018-04-22 12:35] LABS: Monocytes % 22 % (0-7)
[2018-04-22 12:39] LABS: ABS Basophils 0 10^3/ul (0-0.2); ABS Neutrophils 1.6 10^3/ul (1.5-7.7)
[2018-04-22] MEDS: Morphine VIAL* 4 MG/ML VIAL (1 ml vial) IV PRN ×2 (16:23→21:33)
[2018-04-22] MEDS: TPN* 24 HR with Dextrose 50% Water* 500 ML, Amino Acid Infusion 10%* 850 ML, Sterile Wa... CENTR SCH ×12 (17:04)
[2018-04-22] MEDS: Divalproex ER TAB(*) 500 MG PO SCH (20:20)
[2018-04-23] MEDS: Levothyroxine INJ* 100 MCG/5 ML VIAL IV SCH (05:33)
[2018-04-23 06:47] LABS: EGFR Non-African American 164.4 (>60)
[2018-04-23 06:52] LABS: Hematocrit 28 % (35-47); Hemoglobin 9.6 g/dl (12.0-16.0); Mean Corpuscular HGB Conc 34 g/dl (31-36); Mean Corpuscular Hemoglobin 33 pg (27-31); Mean Corpuscular Volume 97 fL (80-97); Red Blood Count 2.89 10^6/ul (4.00-5.40); Red Cell Distribution Width 13 % (10.5-15); White Blood Count 3.3 10^3/ul (3.5-10.8)
--- NOTE | 2018-04-23 09:59 | PN ---
Progress Note - Progress Note Date of Service: 04/23/18 SOAP: Subjective: []Feels better. Less pain, still some distention. Passing gas but no BM. Not walking around much. Tolerated sips of tea. Acetaminophen (Tylenol Adult Liq*) 650 mg PO Q4H PRN PRN Reason: PAIN Last Admin: 04/20/18 23:22 Dose: 650 mg Alprazolam (Xanax Tab*) 0.25 mg PO TID PRN PRN Reason: ANXIETY Last Admin: 04/18/18 11:49 Dose: 0.25 mg Divalproex Sodium (Depakote Er Tab(*)) 1,500 mg PO BEDTIME [facility] Last Admin: 04/22/18 20:20 Dose: 1,500 mg Heparin Sodium (Porcine) (Heparin Flush Port (Ivad)) 5 ml FLUSH DAILY [facility]; Protocol Last Admin: 04/23/18 07:35 Dose: Not Given Dextrose 500 ml/ Amino Acids 850 ml/ Sterile Water 150 ml/Fat Emulsion Intravenous 250 ml/ Sodium Chloride 120 meq/Potassium Chloride 50 meq/Potassium Phosphate 20 mmole/Calcium Gluconate 10 meq/Magnesium Sulfate 10 meq/ Multivitamins 10 ml/ Trace Metals 1 ml/ Nutrition ( Parenteral) 1,846.6347 mls @ 76.943 mls/hr [facility] 1700 [facility]; Protocol Last Admin: 04/22/18 17:04 Dose: 76.943 mls/hr Levothyroxine Sodium (Synthroid Inj*) 25 mcg IV 0600 [facility] Last Admin: 04/23/18 05:33 Dose: 25 mcg Lorazepam (Ativan Inj*) 0.5 mg IV PUSH Q6H PRN PRN Reason: anxiety/sleep Last Admin: 04/21/18 14:06 Dose: 0.5 mg Morphine Sulfate (Morphine Vial*) 2 mg IV Q2H PRN PRN Reason: PAIN Last Admin: 04/22/18 21:33 Dose: 2 mg Prochlorperazine Edisylate (Compazine Inj*) 10 mg IV Q6H PRN PRN Reason: NAUSEA/VOMITING Last Admin: 04/18/18 19:36 Dose: 10 mg Sodium Chloride (Sodium Chloride 0.65% Nasal [place]*) 1 spray BOTH NARES Q4H PRN PRN Reason: dryness Objective: [] Vital Signs Temp Pulse Resp BP Pulse Ox 98.1 F 91 18 127/54 96 04/23/18 08:07 04/23/18 08:07 04/23/18 08:07 04/23/18 08:07 04/23/18 08:07 HEENT: NGT in place CTA RRR s1S2 Distended and non tender abd, hyper tympanic but with + BS. Ext tr edea Neuro AAOx3 Assessment: []67 year old with ovarian cancer one week after cycle 1 of Carbo/[place]/Avastin. DDx: adhesion or progressive disease. Surgery high risk at this time but will be only options of obstruction is from progressive cancer. Slow improvement, maybe. Plan: []1. Follow, no NTG and can try clear liquids. 2. Get up and walk around 3. Minimize oral medications - Hold Zoloft, Levothyroxine to IV - Will continue Depakote 4. Check Ab XR tomorrow. 5. Continue TPN
[2018-04-23 10:48] LABS: Hematocrit 31 % (35-47); Hemoglobin 10.3 g/dl (12.0-16.0); Mean Corpuscular HGB Conc 34 g/dl (31-36); Mean Corpuscular Hemoglobin 33 pg (27-31); Mean Corpuscular Volume 97 fL (80-97); Mean Platelet Volume 7.4 fL (7.4-10.4); Platelet Count 657 10^3/ul (150-450); Red Blood Count 3.13 10^6/ul (4.00-5.40); Red Cell Distribution Width 13 % (10.5-15); White Blood Count 3.3 10^3/ul (3.5-10.8)
[2018-04-23 11:43] LABS: ABS Basophils 0 10^3/ul (0-0.2); ABS Eosinophils 0.1 10^3/ul (0-0.6); ABS Lymphocytes 1.1 10^3/ul (1.0-4.8); ABS Neutrophils 1.2 10^3/ul (1.5-7.7); ABS Nucleated RBC 0.2 10^3/ul; Eosinophil % 1.9 % (0-6)
[2018-04-23] MEDS: TPN* 24 HR with Dextrose 50% Water* 500 ML, Amino Acid Infusion 10%* 850 ML, Sterile Wa... CENTR SCH ×12 (17:14)
[2018-04-23] MEDS: Divalproex ER TAB(*) 500 MG PO SCH (20:46)
[2018-04-23] MEDS: ALPRAZolam TAB* 0.25 MG PO PRN (22:27)
[2018-04-24] MEDS: Acetaminophen ADULT LIQ* 650 MG/20.3 ML UDC PO PRN ×2 (00:55→23:31)
[2018-04-24] MEDS: Levothyroxine INJ* 100 MCG/5 ML VIAL IV SCH (05:03)
[2018-04-24 05:46] LABS: Hematocrit 26 % (35-47); Hemoglobin 9.1 g/dl (12.0-16.0); Mean Corpuscular HGB Conc 35 g/dl (31-36); Mean Corpuscular Hemoglobin 34 pg (27-31); Mean Corpuscular Volume 98 fL (80-97); Mean Platelet Volume 7.5 fL (7.4-10.4); Platelet Count 654 10^3/ul (150-450); Red Cell Distribution Width 13 % (10.5-15); White Blood Count 3.2 10^3/ul (3.5-10.8)
[2018-04-24 05:53] LABS: EGFR Non-African American 126.4 (>60)
[2018-04-24 06:39] LABS: ABS Basophils 0 10^3/ul (0-0.2); ABS Eosinophils 0 10^3/ul (0-0.6); ABS Lymphocytes 1.1 10^3/ul (1.0-4.8); ABS Monocytes 1.1 10^3/ul (0-0.8); ABS Nucleated RBC 0.1 10^3/ul
[2018-04-24 06:48] LABS: Monocytes % 29 % (0-7)
[2018-04-24 06:50] LABS: ABS Basophils 0.1 10^3/ul (0-0.2); ABS Neutrophils 1.1 10^3/ul (1.5-7.7)
--- NOTE | 2018-04-24 08:09 | PN ---
Progress Note - Progress Note Date of Service: 04/24/18 SOAP: Subjective: []Did well yesterday, walked 7 times. Took clear liquid dinner and did well. No increase in abdominal pain. Still distended, still passing gas and still no BM. Active Medications Generic Name Dose Route Start Last Admin Trade Name Freq PRN Reason Stop Dose Admin Acetaminophen 650 mg 04/20/18 23:00 04/24/18 00:55 Tylenol Adult Liq* PO 650 mg Q4H PRN Administration PAIN Alprazolam 0.25 mg 04/14/18 17:15 04/23/18 22:27 Xanax Tab* PO 0.25 mg TID PRN Administration ANXIETY Divalproex Sodium 1,500 mg 04/14/18 21:00 04/23/18 20:46 Depakote Er Tab(*) PO 1,500 mg BEDTIME [facility] Administration Heparin Sodium (Porcine) 5 ml 04/15/18 09:00 04/23/18 07:35 Heparin Flush Port (Ivad) FLUSH Not Given DAILY [facility] Protocol Dextrose 500 ml/ Amino Acids 1,846.6347 mls @ 76.943 mls/hr 04/22/18 17:00 17:14 850 ml/ Sterile Water 150 ml/ CENTR 76.943 mls/hr Fat Emulsion Intravenous 250 1700 [facility] Administration ml/ Sodium Chloride 120 meq/ Potassium Chloride 50 meq/ Potassium Phosphate 20 mmole/ Protocol Calcium Gluconate 10 meq/ Magnesium Sulfate 10 meq/ Multivitamins 10 ml/ Trace Metals 1 ml/ Nutrition ( Parenteral) Levothyroxine Sodium 25 mcg 04/23/18 06:00 04/24/18 05:03 Synthroid Inj* IV 25 mcg 0600 [facility] Administration Lorazepam 0.5 mg 04/21/18 11:08 04/21/18 14:06 Ativan Inj* IV PUSH 0.5 mg Q6H PRN Administration anxiety/sleep Morphine Sulfate 2 mg 04/14/18 17:14 04/22/18 21:33 Morphine Vial* IV 2 mg Q2H PRN Administration PAIN Prochlorperazine Edisylate 10 mg 04/14/18 17:16 04/18/18 19:36 Compazine Inj* IV 10 mg Q6H PRN Administration NAUSEA/VOMITING Sodium Chloride 1 spray 04/16/18 09:34 Sodium Chloride 0.65% Nasal [place]* BOTH NARES Q4H PRN dryness Objective: [] Vital Signs Temp Pulse Resp BP Pulse Ox 97.5 F 88 17 136/59 96 04/24/18 07:22 04/24/18 07:22 04/24/18 07:22 04/24/18 07:22 04/24/18 07:22 HEENT: NGT in place CTA RRR s1S2 Distended and non tender abd, hyper tympanic but with + BS. No change Ext tr edea Neuro AAOx3 Assessment: []67 year old with ovarian cancer one week after cycle 1 of Carbo/[place]/Avastin. DDx: adhesion or progressive disease. Surgery high risk at this time but will be only options of obstruction is from progressive cancer. Slow improvement, maybe. Plan: []1. Continue clear liquids through day today. 2. Get up and walk around 3. Minimize oral medications - Held Zoloft, Levothyroxine is IV - Will continue Depakote - If still well in am, light solids and oral medications, will hold TPN 4. Check Ab XR for increased symptoms.
[2018-04-24] MEDS ORDERED: TPN* 24 HR with Dextrose 50% Water* 500 ML, Amino Acid Infusion 10%* 850 ML, Sterile Wa... CENTR SCH ×12 (17:00)
[2018-04-24] MEDS: Divalproex ER TAB(*) 500 MG PO SCH (20:09)
[2018-04-25] MEDS: Levothyroxine INJ* 100 MCG/5 ML VIAL IV SCH (05:28)
[2018-04-25 08:23] VITALS: BP 120/47
--- NOTE | 2018-04-25 11:47 | DS ---
- Discharge Summary Admission Date: 04/14/18 Discharge Date: 04/25/18 Discharge Diagnosis: 1. SBO: felt secondary to adhesions from recurrent ovarian cancer, now resolving 2. Pancytopenia: secondary to chemotherapy and prior tx. history, recovered 3. Ascites: s/p paracentesis 04/18 4. Ovarian cancer: recently recurrent s/p C1 Carbo/[place]/Avastin 03/31/18 Discharge Medications: Medication Instructions Recorded Confirmed Type ALPRAZolam TAB* [Xanax TAB*] 0.25 mg PO TID PRN 01/23/16 04/14/18 History Divalproex ER TAB(*) [Depakote ER 3 tab PO BEDTIME 01/23/16 04/14/18 History TAB(*)] Levothyroxine TAB* [Synthroid TAB*] 50 mcg PO DAILY 01/23/16 04/14/18 History Naproxen [Naproxen 500 MG TABS] 500 mg PO BID PRN 01/23/16 04/14/18 History Nortriptyline CAP* [Nortriptylline 10 mg PO DAILY 01/23/16 04/14/18 History CAP*] Prochlorperazine TAB* [Compazine 10 mg PO Q6H PRN 01/23/16 04/14/18 History Tab*] SUMAtriptan TAB* [Imitrex TAB*] 100 mg PO DAILY PRN 01/23/16 04/14/18 History Pjpgo-Y-Hreqrpfyyjebb [Beano] 150 unit PO DAILY 04/14/18 04/15/18 History Docusate CAP* [Colace Cap*] 100 mg PO DAILY PRN 04/14/18 04/14/18 History HYDROmorphone TAB* [Dilaudid TAB*] 2 mg PO Q4H PRN 04/14/18 04/14/18 History Ondansetron TAB* [Zofran 4 MG Tab*] 4 mg PO Q6H PRN 04/14/18 04/14/18 History Sertraline* [Zoloft*] 150 mg PO DAILY 04/18/18 04/18/18 History Acetaminophen ADULT LIQ* [Tylenol 650 mg PO Q4H PRN udc 04/25/18 Rx ADULT LIQ*] Metoclopramide TAB* [Reglan TAB*] 10 mg PO AC #90 tab 04/25/18 Rx Polyethylene Glycol 3350* 8 gm PO BID #60 packet 04/25/18 Rx [Miralax*] Saline NASAL SPRAY 0.65%* [Sodium 1 spray BOTH NARES Q4H PRN btl 04/25/18 Rx Chloride 0.65% Nasal [place]*] Hospital Course: Please see admission note for full H&P, however briefly, Mrs. Perez is well known to our service due to her diagnosis of recurrent peritoneal carcinoma ( initially diagnosed in 2015 with resection and recurred this fall with rising Ca -125 and SBO). She presented to the office on 04/14 for a sick visit with plan for hydration, however was found to have marked panctyopenia and symptoms concerning for recurrent SBO. This was confirmed on x-ray. Due to her treatment with Avastin on 03/31 she was not considered a surgerical candidate and therefore she was managed medically. On 04/18 she had a paracentesis d/t complaint of increasing abd. pressure, this was done under US guidance d/t the cont.'d dilation of small bowels. On 04/19 TPN was initiated. During this time she was tolerating PO clears, however she cont.'d to have significant abd. pain with cont.'d dilation on x-ray. On 04/21 decision to attempt NG tube was made d/t the pt's concern that she was not improving and she wanted to be more aggressive. She had limited output though had some improvement in symptoms, however it was poorly tolerated and discontinued the following day. Fortunately she has had improvement in symptoms with less abd. distention and pain and started having BMs yesterday. Today her diet has been progressed and she will return home with plan for low-residue/low-fiber diet and close f/u. [facility] is very happy to hear this and states good understanding of risk for potential recurrent obstruction. She will f/u with out office on 05/02 and plan will be to resume chemothearpy with C2 on 05/04 with 20% dose reduction of Carbo and Gemcitabine with Avastin on hold indefinitely d/t potential need for surgery. Plan of care reviewed at length and all questions answered. >40 min spent with >50% face to face counseling
== END 2018-04-25 14:35 | disposition home or self-care (01) | DRG 222 ==
LOC: MED 18:02
PROVIDERS: ADMIT Internal Medicine Hematology & Oncology; ATTEND Internal Medicine Hematology & Oncology
PROC: 30233R1 Transfusion of Nonautologous Platelets into Peripheral Vein, Percutaneous Approach (ICD-10-PCS; 2018-04-14)
PROC: 0W9G30Z Drainage of Peritoneal Cavity with Drainage Device, Percutaneous Approach (ICD-10-PCS; 2018-04-19)
PROC: 3E0336Z Introduction of Nutritional Substance into Peripheral Vein, Percutaneous Approach (ICD-10-PCS; 2018-04-19)
PROC: 0DH67UZ Insertion of Feeding Device into Stomach, Via Natural or Artificial Opening (ICD-10-PCS; principal; 2018-04-21)
PROC: 0DP6XUZ Removal of Feeding Device from Stomach, External Approach (ICD-10-PCS; 2018-04-22)
DX: K56.50 Intestinal adhesions [bands], unspecified as to partial versus complete obstruction (principal); D61.810 Antineoplastic chemotherapy induced pancytopenia; C56.9 Malignant neoplasm of unspecified ovary; C48.2 Malignant neoplasm of peritoneum, unspecified; R18.0 Malignant ascites; T45.1X5A Adverse effect of antineoplastic and immunosuppressive drugs, initial encounter; Z88.1 Allergy status to other antibiotic agents; E03.9 Hypothyroidism, unspecified; G43.909 Migraine, unspecified, not intractable, without status migrainosus; M85.80 Other specified disorders of bone density and structure, unspecified site; I34.0 Nonrheumatic mitral (valve) insufficiency; R63.4 Abnormal weight loss; N84.0 Polyp of corpus uteri; Z68.21 Body mass index [BMI] 21.0-21.9, adult; Z94.89 Other transplanted organ and tissue status
CPT/HCPCS: 36415; 49083; 71045; 74018; 74019; 80048; 80053; 82465; 83735; 84100; 84134; 84478; 85025; 85027; 85049; 99219; 99232; 99233; 99239; A9270-GY; J0780; J1642; J2060; J2270; J3475; J3480; P9035

== ENCOUNTER → 2018-05-11 12:05 | Day surgery (SDC) | payer BC ==
--- NOTE | 2018-05-11 13:10 | BRIEFOPN ---
Brief Operative Note - Surgery Procedures: Procedures Procedures Procedures Pre-OP Diagnoses: ascities Post-op Diagnosis: same Procedure: paracentesis Surgeon: Sudeep Asst: none Anethesia: local EBL: none IVF: none Specimen: none 1.5L clear yelow fluid removed Drains: none
--- NOTE | 2018-05-12 06:45 | OP ---
CC: Dr. Saturnino Sanford; Dr. Alexandra Orozco * DATE OF OPERATION: 05/11/18 - [facility] DATE OF : 52 SURGEON: Michael Sheets MD. ANESTHESIA: Local anesthesia. PRE-PROCEDURE DIAGNOSIS: Ascites secondary to ovarian cancer. POST-OP DIAGNOSIS: Ascites secondary to ovarian cancer. OPERATIVE PROCEDURE: Ultrasound-guided paracentesis, 1.5 L of clear yellow fluid removed. SPECIMEN: No specimen sent. ESTIMATED BLOOD LOSS: None. IV FLUIDS: None. INDICATIONS: The patient was identified in the procedure room. Chart was briefly reviewed and I discussed the care with her. I examined her abdomen, which appeared to be distended but mostly tympanic in the upper abdomen. Ultrasound probe was placed over the right abdomen and a fluid pocket identified adjacent to the liver. We marked at the site and then prepped the patient. A time-out was performed. DESCRIPTION OF PROCEDURE: I injected lidocaine for local block. I made an incision at the site of the right upper quadrant, placed the 8-[place] paracentesis needle with tubing into the abdomen and then applied it to the Vacutainer and only removed 1.5 L of fluid. Sterile dressing was then applied after the catheter was removed. The patient tolerated the procedure well. I did discuss the risks, benefits, and alternatives to the procedure prior to doing it. We went over the possible complications, which included but not limited to, bleeding, infection, peritonitis, injury to intestine, need for additional procedures and need for exploratory laparotomy. The patient did agree and signed consent knowingly. At this point, I feel after review of her chart, she had 2 L removed 3 weeks ago with Interventional Radiology and only 1.5 L today. I would recommend imaging with CAT scan prior to any additional treatments with paracentesis. I discussed this with the patient as well. [id number]/CPS #: [id number] [facility]
== END | disposition home or self-care (01) ==
LOC: OR 12:05
PROVIDERS: ATTEND Surgery
DX: R18.0 Malignant ascites (principal); C56.9 Malignant neoplasm of unspecified ovary; C48.2 Malignant neoplasm of peritoneum, unspecified
CPT/HCPCS: 49082

== ENCOUNTER 2019-08-02 13:55 | Inpatient (IN) | payer MEDICARE, BC ==
[2019-08-02] MEDS ORDERED: Morphine INJ* 2 MG/ML 1 ML SYRINGE (TWO MG - NEW SYRINGE VERSION) ONE ×2 (15:01→17:09)
[2019-08-02 15:02] LABS: ABS Basophils 0.1 10^3/ul (0-0.2); ABS Lymphocytes 0.5 10^3/ul (1.0-4.8); ABS Monocytes 0.5 10^3/ul (0-0.8); ABS Neutrophils 4.4 10^3/ul (1.5-7.7); Eosinophil % 0.3 %; Hematocrit 35 % (35-47); Hemoglobin 12.4 g/dL (12.0-16.0); Lymphocyte % 8.8 %; Mean Corpuscular HGB Conc 35 g/dL (31-36); Mean Corpuscular Hemoglobin 40 pg (27-31); Mean Corpuscular Volume 113 fL (80-97); Mean Platelet Volume 7.8 fL (7.4-10.4); Platelet Count 307 10^3/uL (150-450); Red Blood Count 3.11 10^6 /uL (3.70-4.87); Red Cell Distribution Width 17 % (10-15); White Blood Count 5.5 10^3/uL (3.5-10.8)
[2019-08-02 15:19] LABS: Albumin 4.2 g/dL (3.2-5.2); Albumin/Globulin Ratio 1.8 (1-3); BUN/Creatinine Ratio 14.5 (8-20); Calcium 9.6 mg/dL (8.6-10.3); EGFR African American 115.8 (>60); EGFR Non-African American 95.7 (>60); Globulin 2.4 g/dL (2-4); Potassium 4.3 mmol/L (3.5-5.0); Total Bilirubin 0.6 mg/dL (0.2-1.0); Total Protein 6.6 g/dL (6.4-8.9)
[2019-08-02] MEDS: PROCHLORPERAZINE INJ 5 MG/ML 2 ML VIAL IV PRN (20:39)
[2019-08-02] MEDS: Enoxaparin(*) 40 MG/0.4 ML SYR SUBCUT SCH (21:08)
[2019-08-02] MEDS: NS 0.9% 1000 ML** 1,000 ML IV SCH (21:08)
[2019-08-02] MEDS: Magic Mouth Was-BEN/MAAL/LIDO SWISH SPIT SCH (22:56)
[2019-08-02] MEDS: LYNPARZA 150 MG PO SCH (22:56)
[2019-08-03] MEDS: NS 0.9% 1000 ML** 1,000 ML IV SCH ×2 (06:14→19:52)
[2019-08-03 06:33] LABS: ABS Lymphocytes 0.6 10^3/ul (1.0-4.8); ABS Monocytes 0.6 10^3/ul (0-0.8); ABS Neutrophils 3.8 10^3/ul (1.5-7.7); Eosinophil % 0.3 %; Hematocrit 35 % (35-47); Hemoglobin 12.1 g/dL (12.0-16.0); Lymphocyte % 12.3 %; Mean Corpuscular HGB Conc 35 g/dL (31-36); Mean Corpuscular Hemoglobin 40 pg (27-31); Mean Corpuscular Volume 114 fL (80-97); Nucleated Red Blood Cells % 0.2; Platelet Count 266 10^3/uL (150-450); Red Blood Count 3.06 10^6 /uL (3.70-4.87); Red Cell Distribution Width 17 % (10-15)
[2019-08-03 06:54] LABS: Albumin 3.2 g/dL (3.2-5.2); Calcium 8.1 mg/dL (8.6-10.3); Potassium 3.7 mmol/L (3.5-5.0); Total Bilirubin 0.5 mg/dL (0.2-1.0)
[2019-08-03 07:00] LABS: Albumin/Globulin Ratio 1.4 (1-3); EGFR African American 148.5 (>60); EGFR Non-African American 122.7 (>60); Globulin 2.3 g/dL (2-4); Total Protein 5.5 g/dL (6.4-8.9)
--- NOTE | 2019-08-03 09:57 | PN ---
Progress Note - Progress Note Date of Service: 08/03/19 SOAP: Subjective: []Admitted yesterday for conservative, medical management of SBO. Diagnostic paracentesis this AM, Ca 125 pending. Per nursing she had sudden, explosive stool x1 this AM. Tells me she feels OK right now, no major pain. Denies nausea. Medications: Enoxaparin Sodium (Lovenox(*)) 40 mg SUBCUT Q24H [facility] Last Admin: 08/02/19 21:08 Dose: 40 mg Sodium Chloride (Ns 0.9% 1000 Ml) 1,000 mls @ 100 mls/hr IV PER RATE [facility] Last Admin: 08/03/19 06:14 Dose: 100 mls/hr Morphine Sulfate (Morphine Inj (Syringe)*) 4 mg IV Q4H PRN PRN Reason: PAIN - MILD Multi-Ingredient Mouthwash/Gargle (Magic Mouth Was-Michael/Maal/Lido*) 5 ml SWISH SPIT QID [facility] Last Admin: 08/02/19 22:56 Dose: 5 ml Pto: Lynparza 150mg (Tablet) 2 dose PO BID [facility] Last Admin: 08/02/19 22:56 Dose: 2 dose Ondansetron HCl (Zofran Inj*) 4 mg IV Q4H PRN PRN Reason: NAUSEA/VOMITING Prochlorperazine Edisylate (Compazine Inj*) 10 mg IV Q6H PRN PRN Reason: NAUSEA Last Admin: 08/02/19 20:39 Dose: 10 mg Objective: [] Vital Signs Temp Pulse Resp BP Pulse Ox 98.2 F 75 18 110/48 98 08/03/19 07:18 08/03/19 07:18 08/03/19 07:18 08/03/19 07:18 08/03/19 07:18 A&Ox3, EOMI, neuro grossly non-focal HRR, S1S2 LS clear bilat. +BS, abd. slightly distended, mildly tender Laboratory Results - last 24 hr 08/02/19 08/02/19 08/03/19 14:30 14:30 06:00 WBC 5.5 5.0 RBC 3.11 L 3.06 L Hgb 12.4 12.1 Hct 35 35 MCV 113 H 114 H MCH 40 H 40 H MCHC 35 35 RDW 17 H 17 H Plt Count 307 266 MPV 7.8 8.0 Neut % (Auto) 81.2 74.8 Lymph % (Auto) 8.8 12.3 Brooks % (Auto) 8.7 11.9 Eos % (Auto) 0.3 0.3 Baso % (Auto) 1.0 0.7 Absolute Neuts (auto) 4.4 3.8 Absolute Lymphs (auto) 0.5 L 0.6 L Absolute Monos (auto) 0.5 0.6 Absolute Eos (auto) 0.0 0.0 Absolute Basos (auto) 0.1 0.0 Absolute Nucleated RBC 0.0 0.0 Nucleated RBC % 0.0 0.2 Sodium 134 L Potassium 4.3 Chloride 95 L Carbon Dioxide 26 Anion Gap 13 H BUN 9 Creatinine 0.62 Est GFR ( Amer) 115.8 Est GFR (Non-Af Amer) 95.7 BUN/Creatinine Ratio 14.5 Glucose 88 Calcium 9.6 Total Bilirubin 0.60 AST 32 ALT 21 Alkaline Phosphatase 77 Total Protein 6.6 Albumin 4.2 Globulin 2.4 Albumin/Globulin Ratio 1.8 08/03/19 06:00 WBC RBC Hgb Hct MCV MCH MCHC RDW Plt Count MPV Neut % (Auto) Lymph % (Auto) [place] % (Auto) Eos % (Auto) Baso % (Auto) Absolute Neuts (auto) Absolute Lymphs (auto) Absolute Monos (auto) Absolute Eos (auto) Absolute Basos (auto) Absolute Nucleated RBC Nucleated RBC % Sodium 137 Potassium 3.7 Chloride 101 Carbon Dioxide 26 Anion Gap 10 BUN 6 Creatinine 0.50 L Est GFR ( Amer) 148.5 Est GFR (Non-Af Amer) 122.7 BUN/Creatinine Ratio 12.0 Glucose 91 Calcium 8.1 L Total Bilirubin 0.50 AST 21 ALT 16 Alkaline Phosphatase 70 Total Protein 5.5 L Albumin 3.2 Globulin 2.3 Albumin/Globulin Ratio 1.4 Assessment: []Mrs. Perez is a 69 yo female with ovarian cancer on Olaparib maintenance since 08/2018 presenting with progressive abd. pain, found to have a SBO, unfortunately most likely related to progressive disease with clinical evidence for ascites and nodules on abd. exam (though to note the CT does not show clear omental caking). She is stable this AM without clear resolution. Plan: []1. SBO: not vomiting, therefore cont. medical management - unlikely to be a good surgical candidate, but if not improving in 24 hours can consider NG for decompression and consult - check Abd. x-ray this afternoon - cont. IV NS @ 100 mL/hr - cont. PRN pain meds and anti-emetics - enc. OOB activity - Ok to have ice chips and sips of water 2. Ovarian cancer: s/p diagnostic paracentesis - Ca 125 pending - She is close to a year out from platin based therapy therefore multi. options moving forward Full Code
[2019-08-03] MEDS: LYNPARZA 150 MG PO SCH ×2 (10:26→20:51)
[2019-08-03] MEDS: Magic Mouth Was-BEN/MAAL/LIDO SWISH SPIT SCH ×4 (10:27→20:51)
[2019-08-03] MEDS ORDERED: ALPRAZolam TAB* 0.25 MG PO PRN (10:47)
[2019-08-03] MEDS: Simethicone TAB* 80 MG TAB.CHEW PO SCH (18:32)
[2019-08-03] MEDS: Divalproex ER TAB(*) 500 MG PO SCH (20:48)
[2019-08-03] MEDS: Enoxaparin(*) 40 MG/0.4 ML SYR SUBCUT SCH (20:52)
[2019-08-03] MEDS: PROCHLORPERAZINE INJ 5 MG/ML 2 ML VIAL IV PRN (21:01)
[2019-08-03] MEDS: Morphine INJ* 4 MG/ML 1 ML SYRINGE (NEW SYRINGE VERSION) IV PRN (23:08)
[2019-08-04] MEDS: Levothyroxine TAB* 50 MCG TAB PO SCH (05:55)
[2019-08-04] MEDS: NS 0.9% 1000 ML** 1,000 ML IV SCH ×2 (06:19→19:18)
[2019-08-04 07:28] LABS: ABS Lymphocytes 0.6 10^3/ul (1.0-4.8); ABS Monocytes 0.6 10^3/ul (0-0.8); ABS Neutrophils 4.3 10^3/ul (1.5-7.7); Eosinophil % 0.1 %; Hematocrit 33 % (35-47); Hemoglobin 11.6 g/dL (12.0-16.0); Lymphocyte % 10.7 %; Mean Corpuscular HGB Conc 35 g/dL (31-36); Mean Corpuscular Hemoglobin 40 pg (27-31); Mean Corpuscular Volume 114 fL (80-97); Mean Platelet Volume 8.1 fL (7.4-10.4); Nucleated Red Blood Cells % 0.5; Platelet Count 276 10^3/uL (150-450); Red Blood Count 2.89 10^6 /uL (3.70-4.87); Red Cell Distribution Width 17 % (10-15); White Blood Count 5.5 10^3/uL (3.5-10.8)
[2019-08-04 07:33] LABS: Calcium 7.9 mg/dL (8.6-10.3); EGFR African American 148.5 (>60); EGFR Non-African American 122.7 (>60); Potassium 3.7 mmol/L (3.5-5.0)
[2019-08-04] MEDS: Simethicone TAB* 80 MG TAB.CHEW PO SCH ×3 (07:42→18:01)
[2019-08-04] MEDS: PROCHLORPERAZINE INJ 5 MG/ML 2 ML VIAL IV PRN ×3 (07:42→21:31)
[2019-08-04] MEDS: LYNPARZA 150 MG PO SCH ×3 (09:40→22:37)
[2019-08-04] MEDS: Sertraline* 100 MG TAB PO SCH (09:42)
[2019-08-04] MEDS: Magic Mouth Was-BEN/MAAL/LIDO SWISH SPIT SCH ×4 (09:44→22:37)
--- NOTE | 2019-08-04 10:13 | PN ---
Progress Note - Progress Note Date of Service: 08/04/19 SOAP: Subjective: [Tried clear liquids for the first time last night. Had increased abdominal cramping. Still having freq diarrhea, ~8 episodes per day. No fevers. Paracentesis completed yesterday, tolerated well. Objective: [ Vital Signs: Temp Pulse Resp BP Pulse Ox 98.4 F 88 18 119/59 97 08/04/19 07:15 08/04/19 07:15 08/04/19 08:00 08/04/19 07:15 08/04/19 07:15 Alprazolam (Xanax Tab*) 0.25 mg PO TID PRN PRN Reason: ANXIETY Last Admin: 08/03/19 20:48 Dose: 0.25 mg Divalproex Sodium (Depakote Er Tab(*)) 1,000 mg PO BEDTIME [facility] Last Admin: 08/03/19 20:48 Dose: 500 mg Enoxaparin Sodium (Lovenox(*)) 40 mg SUBCUT Q24H [facility] Last Admin: 08/03/19 20:52 Dose: 40 mg Sodium Chloride (Ns 0.9% 1000 Ml) 1,000 mls @ 100 mls/hr IV PER RATE [facility] Last Admin: 08/04/19 06:19 Dose: 100 mls/hr Levothyroxine Sodium (Synthroid Tab*) 50 mcg PO DAILY@0600 [facility] Last Admin: 08/04/19 05:55 Dose: 50 mcg Morphine Sulfate (Morphine Inj (Syringe)*) 4 mg IV Q4H PRN PRN Reason: PAIN - MILD Last Admin: 08/03/19 23:08 Dose: 4 mg Multi-Ingredient Mouthwash/Gargle (Magic Mouth Was-Michael/Maal/Lido*) 5 ml SWISH SPIT QID [facility] Last Admin: 08/04/19 09:44 Dose: Not Given Pto: Lynparza 150mg (Tablet) 2 dose PO BID [facility] Last Admin: 08/04/19 09:40 Dose: 2 dose Ondansetron HCl (Zofran Inj*) 4 mg IV Q4H PRN PRN Reason: NAUSEA/VOMITING Prochlorperazine Edisylate (Compazine Inj*) 10 mg IV Q6H PRN PRN Reason: NAUSEA Last Admin: 08/04/19 07:42 Dose: 10 mg Sertraline HCl (Zoloft*) 150 mg PO DAILY [facility] Last Admin: 08/04/19 09:42 Dose: 150 mg Simethicone (Mylicon Tab*) 80 mg PO PC [facility] Last Admin: 08/04/19 07:42 Dose: 80 mg Laboratory Results - last 24 hr 08/02/19 08/04/19 08/04/19 14:30 05:56 05:56 WBC 5.5 RBC 2.89 L Hgb 11.6 L Hct 33 L MCV 114 H MCH 40 H MCHC 35 RDW 17 H Plt Count 276 MPV 8.1 Neut % (Auto) 78.5 Lymph % (Auto) 10.7 [place] % (Auto) 10.2 Eos % (Auto) 0.1 Baso % (Auto) 0.5 Absolute Neuts (auto) 4.3 Absolute Lymphs (auto) 0.6 L Absolute Monos (auto) 0.6 Absolute Eos (auto) 0.0 Absolute Basos (auto) 0.0 Absolute Nucleated RBC 0.0 Nucleated RBC % 0.5 Sodium 137 Potassium 3.7 Chloride 103 Carbon Dioxide 23 Anion Gap 11 BUN 5 L Creatinine 0.50 L Est GFR ( Amer) 148.5 Est GFR (Non-Af Amer) 122.7 BUN/Creatinine Ratio 10.0 Glucose 89 Calcium 7.9 L CA 125 Antigen 46 H Exam: Gen: mildly ill appearing, in NAD HEENT: MMM CV: RRR, no m/r/g Resp: CTA, no w/c/r Abd: soft, mildly distended, nonTTP, slightly hyperactive BS Ext: trace LE edema Assessment: [Mrs. Perez is a 69 yo female with ovarian cancer on Olaparib maintenance since 08/2018 presenting with progressive abd. pain, found to have a SBO, unfortunately most likely related to progressive disease with clinical evidence for ascites and nodules on abd. exam (though to note the CT does not show clear omental caking). She is slightly improved on clear liquids now. Plan: []1. SBO: - upon personal review of the KUB there is slight improvement but stable per radiology review - unlikely to be a good surgical candidate, could consider NGT for decompression if she fails to continue to improve - repeat KUB tomorrow am - cont. IV NS @ 100 mL/hr - cont. PRN pain meds and anti-emetics - enc. OOB activity - cont clear liquids, can consider full liquids for dinner if she tolerates clears well - check stool studies for C.diff due to freq diarrhea - unlikely to be positive but important to eval for potential infectious causes - cell counts and culture from peritoneal fluid also pending 2. Ovarian cancer: s/p diagnostic paracentesis with cytology results pending - Ca 125 increased to 47 - She is close to a year out from platin based therapy therefore multi. options moving forward Full Code Dispo: plan dc home when she is able to consistently handle po intake
[2019-08-04] MEDS: Ondansetron INJ* 2 MG/ML VIAL IV PRN ×2 (10:51→19:26)
[2019-08-04] MEDS: Morphine INJ* 4 MG/ML 1 ML SYRINGE (NEW SYRINGE VERSION) IV PRN ×2 (14:26→21:23)
[2019-08-04] MEDS: Enoxaparin(*) 40 MG/0.4 ML SYR SUBCUT SCH (21:25)
[2019-08-04] MEDS: Divalproex ER TAB(*) 500 MG PO SCH ×2 (21:32→22:37)
[2019-08-05] MEDS: Levothyroxine TAB* 50 MCG TAB PO SCH (06:11)
[2019-08-05] MEDS: NS 0.9% 1000 ML** 1,000 ML IV SCH ×2 (06:15→17:45)
[2019-08-05 06:43] LABS: ABS Eosinophils 0.1 10^3/ul (0-0.6); ABS Lymphocytes 0.8 10^3/ul (1.0-4.8); ABS Monocytes 0.6 10^3/ul (0-0.8); ABS Neutrophils 3.5 10^3/ul (1.5-7.7); Hematocrit 30 % (35-47); Hemoglobin 10.4 g/dL (12.0-16.0); Lymphocyte % 16.3 %; Mean Corpuscular HGB Conc 35 g/dL (31-36); Mean Corpuscular Hemoglobin 40 pg (27-31); Mean Corpuscular Volume 114 fL (80-97); Mean Platelet Volume 7.9 fL (7.4-10.4); Nucleated Red Blood Cells % 0.3; Platelet Count 260 10^3/uL (150-450); Red Blood Count 2.62 10^6 /uL (3.70-4.87); Red Cell Distribution Width 18 % (10-15); White Blood Count 4.9 10^3/uL (3.5-10.8)
[2019-08-05 06:55] LABS: Albumin 2.7 g/dL (3.2-5.2); Albumin/Globulin Ratio 1.5 (1-3); BUN/Creatinine Ratio 6.1 (8-20); Calcium 7.7 mg/dL (8.6-10.3); EGFR Non-African American 125.6 (>60); Globulin 1.8 g/dL (2-4); Magnesium 1.5 mg/dL (1.9-2.7); Potassium 3.2 mmol/L (3.5-5.0); Total Bilirubin 0.4 mg/dL (0.2-1.0); Total Protein 4.5 g/dL (6.4-8.9)
--- NOTE | 2019-08-05 08:06 | PN ---
Progress Note - Progress Note Date of Service: 08/05/19 SOAP: Subjective: []She did ok over night. Minimal po intake but no vomiting. She is having diarrhea. Continued abdominal pain, bloating. No fevers. Alprazolam (Xanax Tab*) 0.25 mg PO TID PRN PRN Reason: ANXIETY Last Admin: 08/03/19 20:48 Dose: 0.25 mg Divalproex Sodium (Depakote Er Tab(*)) 1,000 mg PO BEDTIME [facility] Last Admin: 08/04/19 22:37 Dose: 500 mg Enoxaparin Sodium (Lovenox(*)) 40 mg SUBCUT Q24H [facility] Last Admin: 08/04/19 21:25 Dose: 40 mg Sodium Chloride (Ns 0.9% 1000 Ml) 1,000 mls @ 100 mls/hr IV PER RATE [facility] Last Admin: 08/05/19 06:15 Dose: 100 mls/hr Levothyroxine Sodium (Synthroid Tab*) 50 mcg PO DAILY@0600 [facility] Last Admin: 08/05/19 06:11 Dose: 50 mcg Morphine Sulfate (Morphine Inj (Syringe)*) 4 mg IV Q4H PRN PRN Reason: PAIN - MILD Last Admin: 08/04/19 21:23 Dose: 4 mg Multi-Ingredient Mouthwash/Gargle (Magic Mouth Was-Michael/Maal/Lido*) 5 ml SWISH SPIT QID [facility] Last Admin: 08/04/19 22:37 Dose: 5 ml Pto: Lynparza 150mg (Tablet) 2 dose PO BID [facility] Last Admin: 08/04/19 22:37 Dose: 2 dose Ondansetron HCl (Zofran Inj*) 4 mg IV Q4H PRN PRN Reason: NAUSEA/VOMITING Last Admin: 08/04/19 19:26 Dose: 4 mg Prochlorperazine Edisylate (Compazine Inj*) 10 mg IV Q6H PRN PRN Reason: NAUSEA Last Admin: 08/04/19 21:31 Dose: 10 mg Sertraline HCl (Zoloft*) 150 mg PO DAILY [facility] Last Admin: 08/04/19 09:42 Dose: 150 mg Simethicone (Mylicon Tab*) 80 mg PO PC [facility] Last Admin: 08/04/19 18:01 Dose: 80 mg Objective: [] Vital Signs Temp Pulse Resp BP Pulse Ox 98.6 F 81 16 113/49 94 08/05/19 07:54 08/05/19 07:54 08/05/19 07:54 08/05/19 07:54 08/05/19 07:54 Exam: Gen: mildly ill appearing, in NAD HEENT: MMM CV: RRR, no m/r/g Resp: CTA, no w/c/r Abd: soft, mildly distended, nonTTP, + BS Ext: trace LE edema Assessment: [Mrs. Perez is a 69 yo female with ovarian cancer on Olaparib maintenance since 08/2018 presenting with progressive abd. pain, found to have a SBO, progressive disease by paracentesis. She has slight improvement on bowl rest, no vomiting overnight. Plan: []1. SBO: - continued conservative management. - Can try clear liquids as tolerated - NGT for vomiting. - KUB tomorrow. - cont. IV NS @ 100 mL/hr - cont. PRN pain meds and anti-emetics - enc. OOB activity - Consult surgery Wednesday if no improvement. 2. Ovarian cancer: s/p diagnostic paracentesis with cytology + recurrent disease. - Ca 125 increased to 47 - She is close to a year out from platin based therapy therefore multi. options moving forward Full Code Dispo: plan dc home when she is able to consistently handle po intake
[2019-08-05] MEDS: Morphine INJ* 4 MG/ML 1 ML SYRINGE (NEW SYRINGE VERSION) IV PRN (08:17)
[2019-08-05] MEDS: Simethicone TAB* 80 MG TAB.CHEW PO SCH ×3 (08:18→17:45)
[2019-08-05] MEDS: PROCHLORPERAZINE INJ 5 MG/ML 2 ML VIAL IV PRN (08:18)
[2019-08-05] MEDS: Sertraline* 100 MG TAB PO SCH (10:49)
[2019-08-05] MEDS: LYNPARZA 150 MG PO SCH ×2 (10:50→20:23)
[2019-08-05] MEDS: Magic Mouth Was-BEN/MAAL/LIDO SWISH SPIT SCH ×4 (10:51→20:24)
[2019-08-05] MEDS: Divalproex ER TAB(*) 500 MG PO SCH (20:22)
[2019-08-05] MEDS: Enoxaparin(*) 40 MG/0.4 ML SYR SUBCUT SCH (20:24)
[2019-08-06] MEDS: Morphine INJ* 4 MG/ML 1 ML SYRINGE (NEW SYRINGE VERSION) IV PRN ×4 (02:08→20:22)
[2019-08-06] MEDS: PROCHLORPERAZINE INJ 5 MG/ML 2 ML VIAL IV PRN ×4 (02:08→21:10)
[2019-08-06] MEDS: NS 0.9% 1000 ML** 1,000 ML IV SCH ×2 (03:51→16:13)
[2019-08-06] MEDS: Levothyroxine TAB* 50 MCG TAB PO SCH (04:02)
[2019-08-06 04:12] LABS: Hematocrit 34 % (35-47); Hemoglobin 11.5 g/dL (12.0-16.0); Mean Corpuscular HGB Conc 35 g/dL (31-36); Mean Corpuscular Hemoglobin 39 pg (27-31); Mean Corpuscular Volume 114 fL (80-97); Mean Platelet Volume 7.6 fL (7.4-10.4); Platelet Count 273 10^3/uL (150-450); Red Blood Count 2.94 10^6 /uL (3.70-4.87); Red Cell Distribution Width 17 % (10-15); White Blood Count 5.2 10^3/uL (3.5-10.8)
[2019-08-06 04:26] LABS: Albumin/Globulin Ratio 1.4 (1-3); BUN/Creatinine Ratio 4.7 (8-20); Calcium 7.9 mg/dL (8.6-10.3); EGFR African American 176.7 (>60); Globulin 2.1 g/dL (2-4); Magnesium 1.5 mg/dL (1.9-2.7); Potassium 2.9 mmol/L (3.5-5.0); Total Bilirubin 0.4 mg/dL (0.2-1.0); Total Protein 5.1 g/dL (6.4-8.9)
[2019-08-06 04:31] LABS: Polychromasia 1+
[2019-08-06 04:34] LABS: ABS Lymphocytes 0.6 10^3/ul (1.0-4.8); ABS Monocytes 0.5 10^3/ul (0-0.8); ABS Neutrophils 4.1 10^3/ul (1.5-7.7); Eosinophil % 0.5 %; Lymphocyte % 11.3 %; Nucleated Red Blood Cells % 0.2
[2019-08-06] MEDS: Simethicone TAB* 80 MG TAB.CHEW PO SCH ×3 (09:06→17:47)
[2019-08-06] MEDS: LYNPARZA 150 MG PO SCH ×2 (09:06→20:22)
[2019-08-06] MEDS: Sertraline* 100 MG TAB PO SCH (09:07)
[2019-08-06] MEDS ORDERED: Potassium Chlor TAB* 20 MEQ TAB.ER PO ONE (09:51)
[2019-08-06] MEDS ORDERED: Magnesium Sulfate IV* 3 GM in NS 0.9% 100 ML* 100 ML IVPB ONE (10:00)
--- NOTE | 2019-08-06 10:23 | PN ---
Subjective Date of Service: 08/06/19 Interval History: Ms. Perez c/o continued abdominal pain, distention. She reports continued diarrhea, 2 episodes in last 24h without melena or blood. She denies fever, vomiting. She reports nausea and little to no PO intake, as she has pain with eating and fears she will vomit if she eats. No other complaints today. Objective Active Medications: Alprazolam (Xanax Tab*) 0.25 mg PO TID PRN PRN Reason: ANXIETY Last Admin: 08/03/19 20:48 Dose: 0.25 mg Divalproex Sodium (Depakote Er Tab(*)) 1,000 mg PO BEDTIME [facility] Last Admin: 08/05/19 20:22 Dose: 500 mg Enoxaparin Sodium (Lovenox(*)) 40 mg SUBCUT Q24H [facility] Last Admin: 08/05/19 20:24 Dose: 40 mg Sodium Chloride (Ns 0.9% 1000 Ml) 1,000 mls @ 100 mls/hr IV PER RATE [facility] Last Admin: 08/06/19 03:51 Dose: 100 mls/hr Potassium Chloride (Potassium Chloride 20 Meq/100 Ml Ivpremix*) 20 meq in 100 mls @ 50 mls/hr IV Q2H [facility] Stop: 08/06/19 15:59 Magnesium Sulfate 3 gm/ Sodium (Chloride) 106 mls @ 53 mls/hr IVPB ONCE ONE Stop: 08/06/19 11:59 Levothyroxine Sodium (Synthroid Tab*) 50 mcg PO DAILY@0600 [facility] Last Admin: 08/06/19 04:02 Dose: 50 mcg Morphine Sulfate (Morphine Inj (Syringe)*) 4 mg IV Q4H PRN PRN Reason: PAIN - MILD Last Admin: 08/06/19 09:07 Dose: 4 mg Multi-Ingredient Mouthwash/Gargle (Magic Mouth Was-Michael/Maal/Lido*) 5 ml SWISH SPIT QID [facility] Last Admin: 08/05/19 20:24 Dose: Not Given Pto: Lynparza 150mg (Tablet) 2 dose PO BID [facility] Last Admin: 08/06/19 09:06 Dose: 2 dose Ondansetron HCl (Zofran Inj*) 4 mg IV Q4H PRN PRN Reason: NAUSEA/VOMITING Last Admin: 08/04/19 19:26 Dose: 4 mg Prochlorperazine Edisylate (Compazine Inj*) 10 mg IV Q6H PRN PRN Reason: NAUSEA Last Admin: 08/06/19 09:07 Dose: 10 mg Sertraline HCl (Zoloft*) 150 mg PO DAILY [facility] Last Admin: 08/06/19 09:07 Dose: 150 mg Simethicone (Mylicon Tab*) 80 mg PO PC [facility] Last Admin: 08/06/19 09:06 Dose: 80 mg Vital Signs: Temp Pulse Resp BP Pulse Ox 97.9 F 78 16 117/53 95 08/06/19 07:15 08/06/19 07:15 08/06/19 09:07 08/06/19 07:15 08/06/19 07:15 Oxygen Devices in Use Now: None Appearance: Ms. Clarke is an average weight 69yof who is sitting up in bed; she appears mildly ill and uncomfortable, but in no acute distress. Eyes: No Scleral Icterus, PERRLA Ears/Nose/Mouth/Throat: NL Teeth, Lips, Gums, Clear Oropharnyx, Mucous Membranes Moist Neck: NL Appearance and Movements; NL JVP, Trachea Midline Respiratory: Symmetrical Chest Expansion and Respiratory Effort, Clear to Auscultation Cardiovascular: NL Sounds; No Murmurs; No JVD, RRR, No Edema Abdominal: - - abdomen distended; BS hyperactive in all quadrants; abdomen nontender to light palpation Extremities: No Edema, No Clubbing, Cyanosis Neurological: Alert and Oriented x 3 Result Diagrams: 08/06/19 04:00 08/06/19 04:00 Microbiology and Other Data: Microbiology 08/03/19 09:05 Gram Stain - Final Peritoneal Fluid Body Fluid Culture - Preliminary No Growth Day 1 08/04/19 11:39 Stool Gross Appearance - Final Stool C. difficile DNA Amplification - Final 027 Presumptive NEGATIVE Toxigenic C.diff NEGATIVE Assess/Plan/Problems-Billing Assessment: Ms. Perez is a 69 yof with PMHx ovarian cancer who presents with abdominal pain and was found to have small bowel obstruction. - Patient Problems (1) SBO (small bowel obstruction) Comment: -continued abd pain, distention, nausea without vomiting -AXR with air-filled loops of SB, no significant interval change compared with previous 2 days film -conservative management per primary team -continue clears as tolerated; meanwhile, continue IVF -encourage OOB -NGT if vomiting per primary team (2) Ovarian cancer Comment: -oncology managing -Ca 125 elevated to 46 -s/p paracentesis, awaiting cytology (3) Electrolyte abnormality Comment: -replete K, mag and recheck in a.m. (4) Hypothyroidism Comment: -TSH 4.20 06/2019 -continue current dose of levothyroxine (5) DVT prophylaxis Comment: -per primary team: enoxaparin (6) Full code status Status and Disposition: Inpatient. Discharge when tolerating PO intake per primary services.
[2019-08-06] MEDS: Magic Mouth Was-BEN/MAAL/LIDO SWISH SPIT SCH ×4 (11:08→19:54)
[2019-08-06] MEDS: KCL 20 MEQ/100 ML IVPREMIX* 20 MEQ/100 ML BAG IV SCH ×3 (11:16→16:13)
[2019-08-06] MEDS: Morphine INJ* 2 MG/ML 1 ML SYRINGE (TWO MG - NEW SYRINGE VERSION) IV PRN (11:27)
[2019-08-06] MEDS: Divalproex ER TAB(*) 500 MG PO SCH (20:21)
[2019-08-06] MEDS: Enoxaparin(*) 40 MG/0.4 ML SYR SUBCUT SCH (20:26)
[2019-08-07] MEDS: NS 0.9% 1000 ML** 1,000 ML IV SCH (05:02)
[2019-08-07] MEDS: Levothyroxine TAB* 50 MCG TAB PO SCH (05:03)
[2019-08-07 05:38] LABS: Hematocrit 31 % (35-47); Mean Corpuscular HGB Conc 35 g/dL (31-36); Mean Corpuscular Hemoglobin 40 pg (27-31); Mean Corpuscular Volume 112 fL (80-97); Mean Platelet Volume 7.7 fL (7.4-10.4); Platelet Count 268 10^3/uL (150-450); Red Blood Count 2.76 10^6 /uL (3.70-4.87); Red Cell Distribution Width 17 % (10-15)
[2019-08-07 05:50] LABS: Calcium 7.8 mg/dL (8.6-10.3); EGFR African American 216.9 (>60); EGFR Non-African American 179.3 (>60); Magnesium 1.9 mg/dL (1.9-2.7); Potassium 3.4 mmol/L (3.5-5.0)
[2019-08-07 05:55] LABS: ABS Eosinophils 0.1 10^3/ul (0-0.6); ABS Lymphocytes 0.7 10^3/ul (1.0-4.8); ABS Monocytes 0.4 10^3/ul (0-0.8); ABS Neutrophils 2.8 10^3/ul (1.5-7.7); Eosinophil % 1.3 %; Lymphocyte % 18.4 %; Nucleated Red Blood Cells % 0.2
[2019-08-07 06:11] LABS: BUN/Creatinine Ratio 5.6 (8-20)
[2019-08-07] MEDS: Sertraline* 100 MG TAB PO SCH (09:06)
[2019-08-07] MEDS: Simethicone TAB* 80 MG TAB.CHEW PO SCH ×3 (09:07→21:35)
[2019-08-07] MEDS: LYNPARZA 150 MG PO SCH ×2 (09:07→21:36)
[2019-08-07] MEDS: Magic Mouth Was-BEN/MAAL/LIDO SWISH SPIT SCH ×4 (09:07→21:36)
[2019-08-07] MEDS: PROCHLORPERAZINE INJ 5 MG/ML 2 ML VIAL IV PRN ×2 (09:08→23:04)
[2019-08-07] MEDS: Pantoprazole TAB * 40 MG TAB PO SCH (09:13)
--- NOTE | 2019-08-07 09:16 | PN ---
Progress Note - Progress Note Date of Service: 08/07/19 SOAP: Subjective: []Feels good now. Yesterday was a bad day with lots of pain. None right now however. Passing gas and yesterday had two episodes of diarrhea. Gets nauseated but has not thrown up. Feels some of the nausea may be from morphine. Compazine helps. Doesn't like using zofran. Wants to wear compression stockings which she sometimes uses at home. Has a tentative plan for surgery @ [facility] 08/15 to remove peritoneal port and potential laproscopic evaluation. Eating very, very small amt.'s. Yesterday maybe 1 c. of liquid. Was up and ambulating today, felt good. Medications: Alprazolam (Xanax Tab*) 0.25 mg PO TID PRN PRN Reason: ANXIETY Last Admin: 08/03/19 20:48 Dose: 0.25 mg Divalproex Sodium (Depakote Er Tab(*)) 1,000 mg PO BEDTIME [facility] Last Admin: 08/06/19 20:21 Dose: 500 mg Enoxaparin Sodium (Lovenox(*)) 40 mg SUBCUT Q24H [facility] Last Admin: 08/06/19 20:26 Dose: 40 mg Potassium Chloride/Sodium Chloride (Ns 0.9% W/ 20 Meq Kcl 1000 Ml*) 1,000 mls @ 75 mls/hr IV PER RATE [facility] Levothyroxine Sodium (Synthroid Tab*) 50 mcg PO DAILY@0600 [facility] Last Admin: 08/07/19 05:03 Dose: 50 mcg Morphine Sulfate (Morphine Inj (Syringe))*) 2 mg IV Q4H PRN PRN Reason: mild to moderate pain Last Admin: 08/06/19 11:27 Dose: 2 mg Morphine Sulfate (Morphine Inj (Syringe)*) 4 mg IV Q4H PRN PRN Reason: moderate to severe pain Last Admin: 08/06/19 20:22 Dose: 4 mg Multi-Ingredient Mouthwash/Gargle (Magic Mouth Was-Michael/Maal/Lido*) 5 ml SWISH SPIT QID [facility] Last Admin: 08/07/19 09:07 Dose: 5 ml Pto: Lynparza 150mg (Tablet) 2 dose PO BID [facility] Last Admin: 03/02/20 09:07 Dose: 2 dose Ondansetron HCl (Zofran Inj*) 4 mg IV Q4H PRN PRN Reason: NAUSEA/VOMITING Last Admin: 08/04/19 19:26 Dose: 4 mg Pantoprazole Sodium (Protonix Tab*) 40 mg PO DAILY [facility] Prochlorperazine Edisylate (Compazine Inj*) 10 mg IV Q6H PRN PRN Reason: NAUSEA Last Admin: 08/07/19 09:08 Dose: 10 mg Sertraline HCl (Zoloft*) 150 mg PO DAILY [facility] Last Admin: 08/07/19 09:06 Dose: 150 mg Simethicone (Mylicon Tab*) 80 mg PO PC [facility] Last Admin: 08/07/19 09:07 Dose: 80 mg Objective: [] Vital Signs Temp Pulse Resp BP Pulse Ox 99.2 F 67 18 112/49 97 08/07/19 07:15 08/07/19 07:15 08/07/19 08:00 08/07/19 07:15 08/07/19 07:15 A&Ox3 in no acute distress, EOMI, SALAZAR, neuro grossly non-focal HRR, S1S2 LS clear +BS, abd. soft with minimal tenderness +1 bilat. edema LEs Laboratory Results - last 24 hr 08/07/19 08/07/19 05:20 05:20 WBC 4.0 RBC 2.76 L Hgb 11.0 L Hct 31 L MCV 112 H MCH 40 H MCHC 35 RDW 17 H Plt Count 268 MPV 7.7 Neut % (Auto) 69.4 Lymph % (Auto) 18.4 [place] % (Auto) 10.4 Eos % (Auto) 1.3 Baso % (Auto) 0.5 Absolute Neuts (auto) 2.8 Absolute Lymphs (auto) 0.7 L Absolute Monos (auto) 0.4 Absolute Eos (auto) 0.1 Absolute Basos (auto) 0.0 Absolute Nucleated RBC 0.0 Nucleated RBC % 0.2 Sodium 135 Potassium 3.4 L Chloride 103 Carbon Dioxide 28 Anion Gap 4 BUN 2 L Creatinine 0.36 L Est GFR ( Amer) 216.9 Est GFR (Non-Af Amer) 179.3 BUN/Creatinine Ratio 5.6 L Glucose 98 Calcium 7.8 L Magnesium 1.9 Assessment: []Mrs. Perez is a 69 yo female with ovarian cancer on Olaparib maintenance since 08/2018 presenting with progressive abd. pain, found to have a SBO, progressive disease by paracentesis. She is slowly improving, though yesterday was not a good day. Today much better, but still very poor PO intake. Plan: []1. SBO: slow improvement - continued conservative management. - Try advancing diet to full liquid - cont. IV fluids, but will decrease rate and add KCl, NS with 20 mEq @ 75 mL/hr - cont. PRN pain meds and anti-emetics - enc. OOB activity - No indication for surgery at this time - Check abd. x-ray tomorrow AM 2. Ovarian cancer: s/p diagnostic paracentesis with cytology + recurrent disease. - Ca 125 increased to 47 - She is close to a year out from platin based therapy therefore multi. options moving forward - she is scheduled for f/u @ [facility] 08/16/19, with new malignant ascites she may not require laproscopic eval. Will defer to her GynOnc team there. Full Code Dispo: plan dc home when she is able to consistently handle po intake, enc.'d increased activity and possibly home tomorrow.
[2019-08-07] MEDS: NS 0.9% w/ 20 Meq KCL 1000 ML* 1,000 ML IV SCH (10:06)
[2019-08-07] MEDS: Morphine INJ* 2 MG/ML 1 ML SYRINGE (TWO MG - NEW SYRINGE VERSION) IV PRN ×2 (12:06→23:04)
[2019-08-07] MEDS: Enoxaparin(*) 40 MG/0.4 ML SYR SUBCUT SCH (21:35)
[2019-08-07] MEDS: Divalproex ER TAB(*) 500 MG PO SCH ×2 (21:36→21:38)
[2019-08-08] MEDS: NS 0.9% w/ 20 Meq KCL 1000 ML* 1,000 ML IV SCH (02:39)
[2019-08-08] MEDS: Levothyroxine TAB* 50 MCG TAB PO SCH (06:06)
[2019-08-08 06:38] LABS: Hematocrit 31 % (35-47); Hemoglobin 10.7 g/dL (12.0-16.0); Mean Corpuscular HGB Conc 35 g/dL (31-36); Mean Corpuscular Hemoglobin 39 pg (27-31); Mean Corpuscular Volume 113 fL (80-97); Mean Platelet Volume 8.1 fL (7.4-10.4); Platelet Count 281 10^3/uL (150-450); Red Blood Count 2.73 10^6 /uL (3.70-4.87); Red Cell Distribution Width 17 % (10-15); White Blood Count 4.2 10^3/uL (3.5-10.8)
[2019-08-08 06:49] LABS: Albumin/Globulin Ratio 1.4 (1-3); EGFR African American 267.7 (>60); EGFR Non-African American 221.2 (>60); Globulin 1.4 g/dL (2-4); Total Bilirubin 0.3 mg/dL (0.2-1.0); Total Protein 3.4 g/dL (6.4-8.9)
[2019-08-08 07:16] LABS: BUN/Creatinine Ratio 3.3 (8-20); Calcium 5.7 mg/dL (8.6-10.3); Potassium 2.7 mmol/L (3.5-5.0)
[2019-08-08 07:38] LABS: ABS Eosinophils 0.1 10^3/ul (0-0.6); ABS Lymphocytes 0.7 10^3/ul (1.0-4.8); ABS Monocytes 0.4 10^3/ul (0-0.8); Eosinophil % 1.9 %; Lymphocyte % 16.7 %; Nucleated Red Blood Cells % 0.1
[2019-08-08] MEDS: Simethicone TAB* 80 MG TAB.CHEW PO SCH ×3 (09:13→17:26)
[2019-08-08 09:37] LABS: Albumin/Globulin Ratio 1.4 (1-3); Calcium 8.2 mg/dL (8.6-10.3); EGFR African American 163.5 (>60); EGFR Non-African American 135.1 (>60); Globulin 2.2 g/dL (2-4); Potassium 3.5 mmol/L (3.5-5.0); Total Bilirubin 0.6 mg/dL (0.2-1.0); Total Protein 5.2 g/dL (6.4-8.9)
[2019-08-08] MEDS: Magic Mouth Was-BEN/MAAL/LIDO SWISH SPIT SCH ×5 (10:01→19:24)
[2019-08-08] MEDS: Sertraline* 100 MG TAB PO SCH (10:02)
[2019-08-08] MEDS: Pantoprazole TAB * 40 MG TAB PO SCH (10:03)
[2019-08-08] MEDS: LYNPARZA 150 MG PO SCH (10:05)
[2019-08-08 10:08] LABS: BUN/Creatinine Ratio 2.2 (8-20)
[2019-08-08] MEDS ORDERED: NS 0.9% w/ 20 Meq KCL 1000 ML* 1,000 ML IV SCH (10:21)
[2019-08-08] MEDS: Morphine INJ* 2 MG/ML 1 ML SYRINGE (TWO MG - NEW SYRINGE VERSION) IV PRN ×2 (12:23→15:43)
[2019-08-08] MEDS: PROCHLORPERAZINE INJ 5 MG/ML 2 ML VIAL IV PRN (12:23)
[2019-08-08] MEDS: Morphine ORAL CONCENTRATE* 5 MG/0.25 ML ORAL.SYRIN PO PRN ×2 (17:27→20:08)
[2019-08-08] MEDS: Enoxaparin(*) 40 MG/0.4 ML SYR SUBCUT SCH (19:39)
[2019-08-08] MEDS: Divalproex ER TAB(*) 500 MG PO SCH (19:39)
[2019-08-09] MEDS: Levothyroxine TAB* 50 MCG TAB PO SCH (05:41)
[2019-08-09 06:21] LABS: Calcium 7.9 mg/dL (8.6-10.3); EGFR African American 192.1 (>60); EGFR Non-African American 158.7 (>60); Potassium 3.2 mmol/L (3.5-5.0)
[2019-08-09 06:53] LABS: BUN/Creatinine Ratio 2.5 (8-20)
[2019-08-09] MEDS: Morphine ORAL CONCENTRATE* 5 MG/0.25 ML ORAL.SYRIN PO PRN ×4 (09:44→18:38)
[2019-08-09] MEDS: PROCHLORPERAZINE INJ 5 MG/ML 2 ML VIAL IV PRN ×2 (09:44→15:21)
[2019-08-09] MEDS: Magic Mouth Was-BEN/MAAL/LIDO SWISH SPIT SCH ×4 (09:49→21:05)
[2019-08-09] MEDS: Pantoprazole TAB * 40 MG TAB PO SCH (09:49)
[2019-08-09] MEDS: Simethicone TAB* 80 MG TAB.CHEW PO SCH ×3 (09:49→17:24)
[2019-08-09] MEDS: Sertraline* 100 MG TAB PO SCH (09:49)
[2019-08-09] MEDS ORDERED: KCL 10 MEQ/50 ML IVPREMIX* 10 MEQ/50 ML BAG IV ONE (09:49)
--- NOTE | 2019-08-09 10:06 | PN ---
Progress Note - Progress Note Date of Service: 08/09/19 SOAP: Subjective: [] Increased abdominal pain yesterday afternoon, inadequately controlled with change in pain medications. Poor po intake yesterday afternoon/evening. However, this morning is feeling better. Was able to eat breakfast however increased pain after. several loose stools yesterday, passing gas. Didn't walk much yesterday due to pain. Requesting surgical intervention to improve symptoms; doesn't understand why this is not recommended. Medications: Alprazolam (Xanax Tab*) 0.25 mg PO TID PRN PRN Reason: ANXIETY Last Admin: 08/03/19 20:48 Dose: 0.25 mg Divalproex Sodium (Depakote Er Tab(*)) 1,000 mg PO BEDTIME [facility] Last Admin: 08/08/19 19:39 Dose: 500 mg Enoxaparin Sodium (Lovenox(*)) 40 mg SUBCUT Q24H [facility] Last Admin: 08/08/19 19:39 Dose: 40 mg Potassium Chloride/Sodium Chloride (Ns 0.9% W/ 20 Meq Kcl 1000 Ml*) 1,000 mls @ 0 mls/hr IV PER RATE [facility] Last Admin: 08/09/19 01:33 Dose: 10 mls/hr Potassium Chloride (Potassium Chloride 10 Meq/50 Ml Ivpremix*) 10 meq in 50 mls @ 50 mls/hr IV ONCE ONE Stop: 08/09/19 10:48 Levothyroxine Sodium (Synthroid Tab*) 50 mcg PO DAILY@0600 [facility] Last Admin: 08/09/19 05:41 Dose: 50 mcg Morphine Sulfate (Morphine Oral Concentrate*) 5 mg PO Q2H PRN PRN Reason: PAIN - MODERATE Last Admin: 08/09/19 09:44 Dose: 5 mg Morphine Sulfate (Morphine Inj (Syringe))*) 2 mg IV Q4H PRN PRN Reason: PAIN - SEVERE Last Admin: 08/08/19 15:43 Dose: 2 mg Multi-Ingredient Mouthwash/Gargle (Magic Mouth Was-Michael/Maal/Lido*) 5 ml SWISH SPIT QID [facility] Last Admin: 08/09/19 09:49 Dose: 5 ml Ondansetron HCl (Zofran Inj*) 4 mg IV Q4H PRN PRN Reason: NAUSEA/VOMITING Last Admin: 08/04/19 19:26 Dose: 4 mg Pantoprazole Sodium (Protonix Tab*) 40 mg PO DAILY [facility] Last Admin: 08/09/19 09:49 Dose: 40 mg Potassium Chloride (Potassium Chloride Liquid) 20 meq PO DAILY [facility] Prochlorperazine Edisylate (Compazine Inj*) 10 mg IV Q6H PRN PRN Reason: NAUSEA Last Admin: 08/09/19 09:44 Dose: 10 mg Sertraline HCl (Zoloft*) 150 mg PO DAILY [facility] Last Admin: 08/09/19 09:49 Dose: 150 mg Simethicone (Mylicon Tab*) 80 mg PO PC [facility] Last Admin: 08/09/19 09:49 Dose: 80 mg Objective: [] Vital Signs Temp Pulse Resp BP Pulse Ox 98.1 F 83 18 129/51 94 08/09/19 07:15 08/09/19 07:15 08/09/19 09:44 08/09/19 07:15 08/09/19 07:15 A&O x3, EOMI, Neuro grossly non focal frail and malnourished appearing HRR LS clear, RR Hyperactive BS x4 quadrants, distended mildly tender, tympany throughout VIVIAN stockings on, edema stable Laboratory Results - last 24 hr 08/08/19 08/09/19 09:10 05:45 Sodium 136 Potassium 3.2 L Chloride 102 Carbon Dioxide 30 Anion Gap 4 BUN 1 L 1 L Creatinine 0.40 L Est GFR ( Amer) 192.1 Est GFR (Non-Af Amer) 158.7 BUN/Creatinine Ratio 2.2 L 2.5 L Glucose 86 Calcium 7.9 L Assessment: []Mrs. Perez is a 69 yo female with ovarian cancer on Olaparib maintenance since 08/2018 presenting with progressive abd. pain, found to have a SBO, progressive disease by paracentesis. Intermittent improvement consisted with persistent partial obstruction, likely related to progressive disease and surgical scarring. While she notes her pain was not controlled yesterday, she has not been routinely using morphine and while I suspect she is not a good surgical candidate with limited improvement overall we will arrange for surgical consult. Plan: []1. SBO: consult surgery - chicho. full liquid - strongly encouraged OOB activity TID - discussed with nursing increase usage of PO morphine - Check abd. x-ray tomorrow AM 2. Ovarian cancer: s/p diagnostic paracentesis with cytology + recurrent disease. - Ca 125 increased to 47 - She is close to a year out from platin based therapy - Dr. Sanford discussed case with Dr. Sanders ([facility]) plan to pursue carboplatin AUC5 and Doxil 30mg/m2 q28 days once outpatient. 3. Hypokalemia 2/2 diarrhea and poor PO intake - IV and po replacement today - check mag Full Code Dispo: plan dc home when she is able to consistently handle po intake, enc.'d increased activity and possibly home tomorrow.
[2019-08-09 10:12] LABS: Magnesium 1.6 mg/dL (1.9-2.7)
[2019-08-09] MEDS: Potassium Chloride* LIQUID 20 MEQ/15 ML UDC PO SCH (11:31)
[2019-08-09] MEDS: Morphine INJ* 2 MG/ML 1 ML SYRINGE (TWO MG - NEW SYRINGE VERSION) IV PRN (12:51)
--- NOTE | 2019-08-09 15:18 | CONS ---
CC: Dr. Saturnino Sanford; [facility]; Primary Care Doctor SURGICAL CONSULTATION REPORT: DATE OF CONSULT: 08/09/19 LOCATION: The patient was seen in room 421. HISTORY OF PRESENT ILLNESS: I was contacted by the oncology service to evaluate Ms. Perez, a 69-ye ar-old female with recurrent metastatic ovarian cancer, for the possibility of small bowel obstructio n. Ms. Perez was admitted to the hospital directly from the oncology service on 08/02/19 with concern for abdominal pain. Workup including GI and CT scan was suggestive of recurrent disease. The patien t underwent a paracentesis while hospitalized as well where about 20 cc of fluid was taken off and pa thology is consistent with adenocarcinoma. The patient has been observed on the unit with intermittent abdominal pain, treated for such and main tained on a liquid diet. She has undergone a CT scan prior to admission and multiple x-rays during h ospitalization that show concern for a small bowel obstruction. The patient is passing flatus regularly. She does have bowel movements that are loose, last one was this morning. She does have intermittent incontinence both to urine and stool. She denies any nause a or vomiting. She is tolerating a liquid diet, but has decreased appetite and she does deal with ab dominal pain. Of note, the patient was scheduled for a diagnostic laparoscopy and removal of her intraperitoneal po rt 1 week from now at [facility]. This was postponed due to the fact that the patient was diagnose d with recurrent [employer] cancer and the thinking was that she did not warrant a diagnostic laparoscopy be cause the purpose of this was to see if she did have recurrent disease. The recommendation was for c ontinued chemotherapy and the intraperitoneal port was going to be held off as far as its removal thr ough the oncologic surgeons. I was contacted because of this concern on CT scan of small bowel obstruction. The patient has been admitted in the past with SBO as well as pancytopenia as recently as April of last year. This imp roved without surgical intervention. PHYSICAL EXAM: She is afebrile. Vital signs are stable. I's and O's are not recorded. Again, the patient has not had vomiting. She is tolerating minimal p.o. intake. Abdomen is soft, distended, no ntender, tympanitic. Well-healed surgical incisions. No hernias noted. Subcutaneous port appreciat ed without inflammatory changes. DIAGNOSTIC STUDIES/LAB DATA: Labs and CT scan reviewed. IMPRESSION: A 69-year-old female with metastatic ovarian cancer, with abdominal pain, but signs and symptoms not consistent with small bowel obstruction. RECOMMENDATIONS: Liquid diet for now with encouragement of protein drinks due to the patient's low a lbumin. Electrolyte repletion. No NG tube is necessary at this time unless the patient does vomit. I would not recommend diagnostic laparoscopy or laparotomy for this patient given these current find ings of abdominal pain with a differential diagnosis of partial small bowel obstruction without evide nce of a complete bowel obstruction. No surgical intervention. The patient can continue to follow u p with Oncology, and if there are any changes, they can certainly recall our service. I discussed th is with the patient. I will reach out to the oncology service as well. [id number]/[id number] #: [id number]
[2019-08-09] MEDS: Divalproex ER TAB(*) 500 MG PO SCH (21:03)
[2019-08-09] MEDS: Enoxaparin(*) 40 MG/0.4 ML SYR SUBCUT SCH (21:08)
[2019-08-10] MEDS: Levothyroxine TAB* 50 MCG TAB PO SCH (06:10)
[2019-08-10 06:23] LABS: Albumin 3.1 g/dL (3.2-5.2); Albumin/Globulin Ratio 1.5 (1-3); Calcium 8.8 mg/dL (8.6-10.3); EGFR African American 192.1 (>60); EGFR Non-African American 158.7 (>60); Globulin 2.1 g/dL (2-4); Potassium 3.5 mmol/L (3.5-5.0); Total Bilirubin 0.4 mg/dL (0.2-1.0); Total Protein 5.2 g/dL (6.4-8.9)
[2019-08-10 06:49] LABS: Albumin 3.1 g/dL (3.2-5.2); Albumin/Globulin Ratio 1.5 (1-3); BUN/Creatinine Ratio 5.1 (8-20); Calcium 8.5 mg/dL (8.6-10.3); EGFR African American 197.8 (>60); EGFR Non-African American 163.4 (>60); Globulin 2.1 g/dL (2-4); Potassium 3.6 mmol/L (3.5-5.0); Total Bilirubin 0.4 mg/dL (0.2-1.0); Total Protein 5.2 g/dL (6.4-8.9)
[2019-08-10] MEDS ORDERED: Morphine ORAL CONCENTRATE* 5 MG/0.25 ML ORAL.SYRIN SL ONE (09:24)
[2019-08-10] MEDS: Morphine ORAL CONCENTRATE* 5 MG/0.25 ML ORAL.SYRIN PO PRN ×2 (09:25→20:09)
[2019-08-10] MEDS: Potassium Chloride* LIQUID 20 MEQ/15 ML UDC PO SCH (09:26)
[2019-08-10] MEDS: Simethicone TAB* 80 MG TAB.CHEW PO SCH ×3 (09:26→16:51)
[2019-08-10] MEDS: Sertraline* 100 MG TAB PO SCH (09:26)
[2019-08-10] MEDS: Pantoprazole TAB * 40 MG TAB PO SCH (09:26)
--- NOTE | 2019-08-10 09:38 | PN ---
Progress Note - Progress Note Date of Service: 08/10/19 SOAP: Subjective: []Continues to have pain especially after eating. This morning woke up OK, but then increased pain. Yesterday did OK with PO intake. No emesis though intermittent nausea. Doesn't feel like oral morphine has been very effective. Per nursing, takes several doses and then gets benefit. Surgical consult yesterday with recommendation for continued medical management. Medications: Alprazolam (Xanax Tab*) 0.25 mg PO TID PRN PRN Reason: ANXIETY Last Admin: 08/03/19 20:48 Dose: 0.25 mg Divalproex Sodium (Depakote Er Tab(*)) 1,000 mg PO BEDTIME [facility] Last Admin: 08/09/19 21:03 Dose: 500 mg Enoxaparin Sodium (Lovenox(*)) 40 mg SUBCUT Q24H [facility] Last Admin: 08/09/19 21:08 Dose: 40 mg Heparin Sodium (Porcine) (Heparin Flush Port (Ivad)) 5 ml FLUSH DAILY [facility]; Protocol Last Admin: 08/10/19 07:24 Dose: Not Given Levothyroxine Sodium (Synthroid Tab*) 50 mcg PO DAILY@0600 [facility] Last Admin: 08/10/19 06:10 Dose: 50 mcg Morphine Sulfate (Morphine Oral Concentrate*) 5 mg PO Q2H PRN PRN Reason: PAIN - MODERATE Last Admin: 08/10/19 09:25 Dose: 5 mg Morphine Sulfate (Morphine Inj (Syringe))*) 2 mg IV Q4H PRN PRN Reason: PAIN - SEVERE Last Admin: 08/09/19 12:51 Dose: 2 mg Multi-Ingredient Mouthwash/Gargle (Magic Mouth Was-Michael/Maal/Lido*) 5 ml SWISH SPIT QID [facility] Last Admin: 08/09/19 21:05 Dose: 5 ml Ondansetron HCl (Zofran Inj*) 4 mg IV Q4H PRN PRN Reason: NAUSEA/VOMITING Last Admin: 08/04/19 19:26 Dose: 4 mg Pantoprazole Sodium (Protonix Tab*) 40 mg PO DAILY [facility] Last Admin: 08/10/19 09:26 Dose: 40 mg Potassium Chloride (Potassium Chloride Liquid) 20 meq PO DAILY [facility] Last Admin: 08/10/19 09:26 Dose: 20 meq Prochlorperazine Edisylate (Compazine Inj*) 10 mg IV Q6H PRN PRN Reason: NAUSEA Last Admin: 08/09/19 15:21 Dose: 10 mg Sertraline HCl (Zoloft*) 150 mg PO DAILY [facility] Last Admin: 08/10/19 09:26 Dose: 150 mg Simethicone (Mylicon Tab*) 80 mg PO PC [facility] Last Admin: 08/10/19 09:26 Dose: 80 mg Objective: [] Vital Signs Temp Pulse Resp BP Pulse Ox 97.3 F 74 14 112/59 97 08/10/19 07:15 08/10/19 07:15 08/10/19 09:25 08/10/19 07:15 08/10/19 07:15 A&O, notably frustrated HRR Hyperactive BS, abd. distended, slightly tender with +tymphany throughout Laboratory Results - last 24 hr 08/09/19 08/10/19 08/10/19 05:45 05:54 06:00 Sodium 136 134 L 136 Potassium 3.2 L 3.5 3.6 Chloride 102 99 L 99 L Carbon Dioxide 30 30 31 Anion Gap 4 5 6 BUN 1 L 2 L 2 L Creatinine 0.40 L 0.40 L 0.39 L Est GFR ( Amer) 192.1 192.1 197.8 Est GFR (Non-Af Amer) 158.7 158.7 163.4 BUN/Creatinine Ratio 2.5 L 5.0 L 5.1 L Glucose 86 94 95 Calcium 7.9 L 8.8 8.5 L Magnesium 1.6 L Total Bilirubin 0.40 0.40 AST 17 18 ALT 9 9 Alkaline Phosphatase 54 55 Total Protein 5.2 L 5.2 L Albumin 3.1 L 3.1 L Globulin 2.1 2.1 Albumin/Globulin Ratio 1.5 1.5 Imaging: Exam Date: 08/10/19 0800 Order Information: ABDOMEN/KUB 1 VW Accession Number: [id number] CPT: 12965 Indication: Small bowel obstruction. Passing limited stool and gas. Comparison: August 08, 2019 Technique: Supine view of the abdomen. Report: #. Interval increased magnitude of small bowel dilatation consistent with worsening small bowel obstruction or ileus. Negative for central displacement of the bowel loops to favor large ascites. Tip of peritoneal infusion port at the midline pelvis. Upper abdominal and pelvic surgical clips. IMPRESSION: #. Interval increased magnitude of small bowel dilatation consistent with worsening small bowel obstruction or ileus. <Electronically signed by Lito Art MD in OV> 08/10/19916 Dictated By: Lito Art MD Dictated Date/Time: 08/10/19914 Transcribed Date/Time: 08/10/19914 Assessment: []Mrs. Perez is a 69 yo female with ovarian cancer on Olaparib maintenance since 08/2018 presenting with progressive abd. pain, found to have a SBO and confirmation of progressive disease by paracentesis. Intermittent improvement consisted with persistent partial obstruction, likely related to progressive disease and surgical scarring. I feel she is clinically stable for discharge without close outpatient management, though she is appropriately weary of this, as such we do a trial of some additional meds this AM and re-assess in the afternoon. I discussed with Amber the reality that her cancer is likely a major cause of the persistent obstruction therefore proceeding to systemic therapy is the most important next step; however, this can only occur should she be able to tolerate POs, maintain her weight, and have reasonable pain management, ultimately I would like her to be at home as well. Plan: []1. SBO: - persistent and radiographically slightly worse this AM though symptoms stable - appreciate surgical input - cont. full liquid diet as no emesis and passing liquid stools - strongly encouraged OOB activity at least TID - increase morphine to 10 mg PO/SL q2hrs PRN moderate pain - start trial of metoclopramide 10 mg PO TID 2. Ovarian cancer: s/p diagnostic paracentesis with cytology + recurrent disease. - Ca 125 increased to 47 - She is close to a year out from platin based therapy - Dr. Sanford discussed case with Dr. Sanders ([facility]) plan to pursue carboplatin AUC5 and Doxil 30mg/m2 q28 days once outpatient. 3. Hypokalemia 2/2 diarrhea and poor PO intake: stabilized Full Code Dispo: Discussed trial of reglan and increased dose of morphine this AM, if she cont.'s to do OK then reasonable to d/c for continued management at home with close outpatient hydration, lab checks, and f/u
[2019-08-10] MEDS: Metoclopramide LIQ* 10 MG/10 ML ORAL.SOLN PO SCH ×2 (09:58→16:51)
[2019-08-10] MEDS: Magic Mouth Was-BEN/MAAL/LIDO SWISH SPIT SCH ×4 (09:58→20:43)
[2019-08-10] MEDS: Divalproex ER TAB(*) 500 MG PO SCH (20:10)
[2019-08-10] MEDS: Enoxaparin(*) 40 MG/0.4 ML SYR SUBCUT SCH (20:43)
[2019-08-11] MEDS: Metoclopramide LIQ* 10 MG/10 ML ORAL.SOLN PO SCH ×2 (02:55→09:19)
[2019-08-11] MEDS: Levothyroxine TAB* 50 MCG TAB PO SCH (05:44)
[2019-08-11] MEDS: Pantoprazole TAB * 40 MG TAB PO SCH (09:19)
[2019-08-11] MEDS: Potassium Chloride* LIQUID 20 MEQ/15 ML UDC PO SCH (09:19)
[2019-08-11] MEDS: Simethicone TAB* 80 MG TAB.CHEW PO SCH (09:20)
[2019-08-11] MEDS: Sertraline* 100 MG TAB PO SCH (09:20)
[2019-08-11] MEDS: Magic Mouth Was-BEN/MAAL/LIDO SWISH SPIT SCH (09:21)
[2019-08-11 09:27] VITALS: BP 112/41
== END 2019-08-11 11:30 | disposition home or self-care (01) | DRG 389 ==
LOC: CHOA 13:55 → MED 17:01
PROVIDERS: ADMIT Internal Medicine Hematology & Oncology; ATTEND Internal Medicine Hematology & Oncology
PROC: 0W9G3ZX Drainage of Peritoneal Cavity, Percutaneous Approach, Diagnostic (ICD-10-PCS; principal; 2019-08-03)
DX: K56.690 Other partial intestinal obstruction (principal); C56.9 Malignant neoplasm of unspecified ovary; R18.0 Malignant ascites; E46 Unspecified protein-calorie malnutrition; Z68.1 Body mass index [BMI] 19.9 or less, adult; E87.6 Hypokalemia; R19.7 Diarrhea, unspecified; E03.9 Hypothyroidism, unspecified; G43.909 Migraine, unspecified, not intractable, without status migrainosus; I34.0 Nonrheumatic mitral (valve) insufficiency; M85.80 Other specified disorders of bone density and structure, unspecified site; N84.0 Polyp of corpus uteri; R15.9 Full incontinence of feces; R32 Unspecified urinary incontinence; Z88.8 Allergy status to other drugs, medicaments and biological substances; Z79.1 Long term (current) use of non-steroidal anti-inflammatories (NSAID); Z79.899 Other long term (current) drug therapy
CPT/HCPCS: 36415; 49083; 74018; 74019; 80048; 80053; 83735; 85025; 86304; 87070; 87205; 87493; 88112; 88305; 88341; 88342; 88360; 96374; 96375; 99214; 99222; 99232; 99233; A9270-GY; G0463; J0780; J1642; J1650; J2270; J2405; J3475; J3480